=== PATIENT | female | born 1980 | race American Indian/Alaskan Native ===

== ENCOUNTER 2016-10-29 22:30 | Inpatient (IN) | payer BC ==
--- NOTE | 2016-10-29 22:54 | ED PDOC ---
HPI: Back Time Seen by Provider: 10/29/16 22:38 Chief Complaint (Nursing): Back Pain Chief Complaint (Provider): back pain, fever, buttock pain History Per: Patient History/Exam Limitations: no limitations Onset/Duration Of Symptoms: Days (5), Intermittent Episodes Current Symptoms Are (Timing): Still Present Quality Of Discomfort: Sharp Severity: Severe Previous Symptoms: None Exacerbating Factor(s): Turning, Movement, Sitting Additional Complaint(s): 36yo female c/o low back pain and buttock pain stared about 5-6 days ago and has been progressing now w pain sitting, associated with fever and generalized weakness. Denies urinary symptoms, vomiting, diarrhea or syncope. Past Medical History Reviewed: Historical Data, Nursing Documentation, Vital Signs Vital Signs: Last Vital Signs Temp 98.6 F 10/29/16 22:32 Pulse 87 10/29/16 22:32 Resp 16 10/29/16 22:32 BP 130/84 10/29/16 22:32 Pulse Ox 100 10/29/16 22:32 - Medical History PMH: No Chronic Diseases - Family History Family History: States: Unknown Family Hx - Living Arrangements Living Arrangements: With Family - Social History Current smoker - smoking cessation education provided: No - Allergies Allergies/Adverse Reactions: Allergies Allergy/AdvReac Type Severity Reaction Status Date / Time No Known Allergies Allergy Verified 10/29/16 22:32 Review of Systems ROS Statement: Except As Marked, All Systems Reviewed And Found Negative Constitutional: Positive for: Fever, Chills Cardiovascular: Negative for: Chest Pain, Palpitations Gastrointestinal: Negative for: Nausea, Vomiting, Diarrhea Musculoskeletal: Positive for: Neck Pain, Back Pain, Other (buttock pain). Negative for: Arm Pain Skin: Positive for: Rash (buttocks). Negative for: Jaundice, Bruising Neurological: Negative for: Weakness, Numbness, Headache Psych: Negative for: Anxiety Physical Exam - Reviewed Nursing Documentation Reviewed: Yes Vital Signs Reviewed: Yes - Physical Exam Appears: Positive for: Well, Non-toxic, No Acute Distress Head Exam: Positive for: ATRAUMATIC, NORMAL INSPECTION, NORMOCEPHALIC Skin: Positive for: Normal Color, Warm, DRY Eye Exam: Positive for: EOMI, Normal appearance, PERRL ENT: Positive for: Normal ENT Inspection Neck: Positive for: Normal, Painless ROM Cardiovascular/Chest: Positive for: Regular Rate, Rhythm Respiratory: Positive for: CNT, Normal Breath Sounds Gastrointestinal/Abdominal: Positive for: Normal Exam, Bowel Sounds, Soft Back: Positive for: Decreased ROM, Other (significant buttock tenderness, induration, erythema, warmth with palpable tender nodules b/l) Extremity: Negative for: Deformity Neurologic/Psych: Positive for: Alert, Oriented Front/Back of Body: 1 - tenderness - ECG O2 Sat by Pulse Oximetry: 100 Medical Decision Making Medical Decision Making: Admit for cellulitis, likely require specialty consult given clinical findings. Admit hospitalist. Unasyn initiated. Disposition - Clinical Impression Clinical Impression: Cellulitis and abscess of buttock - Patient ED Disposition Is Patient to be Admitted: Yes Counseled Patient/Family Regarding: Studies Performed, Diagnosis - Disposition Disposition Time: 22:55 Condition: STABLE
[2016-10-29] MEDS ORDERED: Ampicillin/Sulbactam 3 GM in Sodium Chloride 0.9% 100 ML IVPB STA (22:58)
--- NOTE | 2016-10-29 23:29 | CP.PCM.HP ---
History of Present Illness - History of Present Illness History of Present Illness: PCP: Ashley Murphy MD ( Not on staff) Chief complaint: Lower back and left buttock pain/fever HPI: 36 years old female with no significant medical hx comes with 5-6 days of sharp left buttock pain radiating to the lower back, increases with sitting and turning of the trunk and associated with fever and generalized weakness the last 2 days. Her home medications provides minimal relief. No nausea, vomits, diarrhea, dysuria nor hx of trauma. PMH: No chronic nor hereditary diseases PSH: Tonsillectomy; wisdom tooth extraction; Bilateral breast implant; Cyst removed from overies; Tummy Tuck 2016 SH: Denies Smoking of Cigarettes; Alcohol socially; No illegal drug use; Live with family; works as a agency trainer FH: Refers Unknown family history Allergies: NKDA Seasonal Allergies Medication: Vesicare Present on Admission - Present on Admission Any Indicators Present on Admission: No History of DVT/PE: No History of Uncontrolled Diabetes: No Urinary Catheter: No Decubitus Ulcer Present: No Review of Systems - Constitutional Constitutional: Fatigue, Fever, Weakness. absent: Anorexia, Chills, Headache - EENT Eyes: Requires Corrective Lenses. absent: Diplopia, Floaters, Photophobia Ears: absent: Decreased Hearing, Ear Discharge, Ear Pain, Tinnitus Nose/Mouth/Throat: absent: Epistaxis, Nasal Congestion, Nasal Discharge, Sinus Pain, Sinus Pressure - Cardiovascular Cardiovascular: absent: Chest Pain, Dyspnea, Leg Edema - Respiratory Respiratory: absent: Cough, Wheezing, Stridor, Chest Congestion - Gastrointestinal Gastrointestinal: Abdominal Pain, Constipation. absent: Diarrhea, Nausea - Genitourinary Genitourinary: absent: Dysuria, Flank Pain, Hematuria, Urinary Frequency - Musculoskeletal Additional comments: Pain to the lower back and pain to the left buttock - Integumentary Integumentary: absent: Pruritus, Rash, Skin Ulcer, Sores, Swelling - Neurological Neurological: Weakness. absent: Abnormal Gait, Abnormal Hearing, Confusion, Focal Weakness, Tremor - Psychiatric Psychiatric: Anxiety. absent: Depression, Panic Attacks - Endocrine Endocrine: Palpitations. absent: Polydipsia, Polyphagia, Polyuria - Hematologic/Lymphatic Hematologic: absent: Easy Bleeding, Easy Bruising Past Patient History - Past Medical History & Family History Past Medical History?: No - Past Social History Smoking Status: Never Smoked Chewing Tobacco Use: No Cigar Use: No Alcohol: Social Drugs: Denies Home Situation {Lives}: With Family - CARDIAC Hx Cardiac Disorders: No - PULMONARY Hx Respiratory Disorders: No - NEUROLOGICAL Hx Neurological Disorder: No - HEENT Hx HEENT Problems: No - RENAL Hx Chronic Kidney Disease: No - ENDOCRINE/METABOLIC Hx Endocrine Disorders: No - HEMATOLOGICAL/ONCOLOGICAL Hx Blood Disorders: No - INTEGUMENTARY Hx Basil Cell: No - MUSCULOSKELETAL/RHEUMATOLOGICAL Hx Musculoskeletal Disorders: Yes Hx Back Pain: Yes - SURGICAL HISTORY Hx Surgeries: Yes Hx Tonsillectomy: Yes Other/Comment: Bilateral breast implant; Tummy Tuck; Cyst removal from overies - ANESTHESIA Hx Anesthesia: Yes Hx Anesthesia Reactions: No Meds Allergies/Adverse Reactions: Allergies Allergy/AdvReac Type Severity Reaction Status Date / Time No Known Allergies Allergy Verified 10/29/16 22:32 Physical Exam - Constitutional Appears: No Acute Distress - Head Exam Head Exam: ATRAUMATIC, NORMAL INSPECTION, NORMOCEPHALIC - Eye Exam Eye Exam: EOMI, Normal appearance Pupil Exam: NORMAL ACCOMODATION, PERRL - ENT Exam ENT Exam: Mucous Membranes Moist, Normal Exam, Normal External Ear Exam, Normal Oropharynx - Neck Exam Neck exam: Positive for: Full Rom, Normal Inspection. Negative for: Lymphadenopathy, Tenderness - Respiratory Exam Respiratory Exam: Clear to Auscultation Bilateral. absent: Rales, Rhonchi, Wheezes - Cardiovascular Exam Cardiovascular Exam: REGULAR RHYTHM, RRR, +S1, +S2. absent: Gallop, JVD - GI/Abdominal Exam GI & Abdominal Exam: Normal Bowel Sounds, Soft. absent: Mass, Organomegaly, Tenderness - Rectal Exam Rectal Exam: Deferred - Extremities Exam Extremities exam: Negative for: calf tenderness, full ROM, normal inspection, pedal edema - Back Exam Back exam: NORMAL INSPECTION Additional comments: Pain across the lower back, most severe at the mid region on palpitation. - Neurological Exam Neurological exam: Alert, CN II-XII Intact, Oriented x3, Reflexes Normal - Psychiatric Exam Psychiatric exam: Normal Affect, Normal Mood - Skin Skin Exam: Cyanosis, Dry, Intact, Warm Additional comments: left buttock with areas of Hyperpigmentation, tender to palpation with some painful masses on palpation. Results - Vital Signs Recent Vital Signs: Last Vital Signs Temp 98.6 F 10/29/16 22:32 Pulse 87 10/29/16 22:32 Resp 16 10/29/16 22:32 BP 130/84 10/29/16 22:32 Pulse Ox 100 10/29/16 23:22 - Labs Result Diagrams: 10/29/16 23:20 10/29/16 23:20 Assessment & Plan - Assessment and Plan (Free Text) Plan: 36 years old female with no significant medical hx comes with 5-6 days of sharp left buttock pain radiating to the lower back, increases with sitting and turning of the trunk and associated with fever and generalized weakness the last 2 days. #. Cellulitis of the left buttock - Unasyn 3g IVPD Q6H - Follow Blood culture #. Lower back pain - pain management with Toradol #. DVT prophylaxis with lovenox #. Code Status: Full - Date & Time Date: 10/29/16 Time: 23:29
[2016-10-29 23:42] LABS: RBC URINE 2 /hpf (0-3); URINE BILIRUBIN NEGATIVE (NEGATIVE); URINE BLOOD NEGATIVE (NEGATIVE); URINE COLOR YELLOW (YELLOW); URINE GLUCOSE (UA) NEG (Normal); URINE KETONE NEGATIVE (NEGATIVE); URINE LEUKOCYTE ESTERASE NEG Leu/uL (Negative); URINE PROTEIN NEGATIVE (NEGATIVE); WBC URINE 2 /hpf (0-5)
[2016-10-29 23:59] LABS: BASO % 0.6 % (0.0-2.0); EOS # 0.1 K/uL (0.0-0.7); EOS % 2.2 % (0.0-4.0); HEMATOCRIT 38.6 % (34.0-47.0); LYMPH # 1.4 K/uL (1.0-4.3); LYMPH % 21.9 % (20.0-40.0); MEAN CELL VOLUME 94.5 fl (81.0-99.0); MEAN CORPUSCULAR HGB CONC 32.8 g/dL (33.0-37.0); MEAN PLATELET VOLUME 8.6 fl (7.2-11.7); MONO # 0.8 K/uL (0.0-0.8); MONO % 12.3 % (0.0-10.0); NEUT # 4.1 K/uL (1.8-7.0); NRBC % 0.1 % (0.0-0.0); RED CELL DISTRIBUTION WIDTH 13.2 % (11.5-14.5); WHITE BLOOD COUNT 6.5 K/uL (4.8-10.8)
[2016-10-30 00:01] LABS: ALB/GLOB RATIO 1.5 (1.0-2.1); ALKALINE PHOSPHATASE 48 U/L (38-126); ALT/SGPT 21 U/L (9-52); AST/SGOT 45 U/L (14-36); BILIRUBIN,TOTAL 0.9 mg/dl (0.2-1.3); BLOOD UREA NITROGEN 16 mg/dl (7-17); CALCIUM 9.6 mg/dL (8.4-10.2); CARBON DIOXIDE 25 mmol/L (22-30); CHLORIDE 103 mmol/L (98-107); GFR AFRICAN-AMERICAN > 60; GLUCOSE,RANDOM 83 mg/dL (65-105); SODIUM 138 mmol/l (132-148); TOTAL PROTEIN 6.9 G/DL (6.3-8.2)
[2016-10-30 00:04] LABS: POTASSIUM 4.4 MMOL/L (3.6-5.0)
[2016-10-30 00:14] LABS: PARTIAL THROMBOPLASTIN TIME 27.1 Seconds (25.6-37.1)
[2016-10-30] MEDS: Ampicillin/Sulbactam 3 GM in Sodium Chloride 0.9% 100 ML IVPB SCH ×4 (05:50→23:40)
--- NOTE | 2016-10-30 07:55 | CP.PCM.PN ---
Subjective - Date & Time of Evaluation Date of Evaluation: 10/30/16 Time of Evaluation: 07:55 Objective - Vital Signs/Intake and Output Vital Signs (last 24 hours): Temp Pulse Resp BP Pulse Ox 97.8 F 60 18 119/71 100 10/30/16 06:05 10/30/16 00:24 10/30/16 00:24 10/30/16 00:24 10/30/16 00:24 - Medications Medications: Current Medications Enoxaparin Sodium (Lovenox) 40 mg SC DAILY [facility] PRN Reason: Protocol Ampicillin Sodium/Sulbactam (Sodium 3 gm/ Sodium Chloride) 100 mls @ 100 mls/ hr IVPB Q6H [facility] Last Admin: 10/30/16 05:50 Dose: 100 mls/hr Ketorolac Tromethamine (Toradol) 15 mg IVP Q6 PRN PRN Reason: Pain, moderate (4-7) Ketorolac Tromethamine (Toradol) 30 mg IVP Q6 PRN PRN Reason: Pain, severe (8-10) Last Admin: 10/30/16 05:56 Dose: 30 mg - Labs Labs: 10/29/16 23:20 10/29/16 23:20 PT 13.5 Seconds (9.8-13.1) H 10/29/16 23:20 INR 1.3 (0.9-1.2) H 10/29/16 23:20 APTT 27.1 Seconds (25.6-37.1) 10/29/16 23:20 Assessment and Plan - Assessment and Plan (Free Text) Plan: 36 years old female with no significant medical hx comes with 5-6 days of sharp left buttock pain radiating to the lower back, increases with sitting and turning of the trunk and associated with fever and generalized weakness the last 2 days. #. Cellulitis of the left buttock - Unasyn 3g IVPD Q6H - Follow Blood culture #. Lower back pain - pain management with Toradol #. DVT prophylaxis with lovenox #. Code Status: Full
--- NOTE | 2016-10-30 09:08 | CP.PCM.PN ---
Subjective - Date & Time of Evaluation Date of Evaluation: 10/30/16 Time of Evaluation: 09:05 - Subjective Subjective: pt seen examined bedside. + exquisite tenderness, masses bilateral buttock, lumbar area with fluctuance, boggy changes pain managed well otherwise no other complaints no cp dyspnea vss nad Objective - Vital Signs/Intake and Output Vital Signs (last 24 hours): Temp Pulse Resp BP Pulse Ox 97.6 F 59 L 20 105/68 96 10/30/16 08:06 10/30/16 08:06 10/30/16 08:06 10/30/16 08:06 10/30/16 08:06 GEN: WDWN, alert, cooperative HEENT: NCAT, PERRL, EOMI Neck: supple, no lymphadenopathy CARDIO: +S1S2, RRR, NO M/R/G LUNG: CTAB, NO W/R/R ABD: soft, NT, ND, no masses, no HSM EXT: no edema, pedal pulses Neuro: AAOx3, Strength equal, bilateral UE/LE Skin: bilteral buttock / L spine hyperpigmentation, tenderness, masses, discoloration, exquisite tenderness, and warmth likely cellulitic / soft tissue necrosis. This is also extending to the lumbar area with fluctuance, boggy changes. Psych: normal mood, normal affect - Medications Medications: Current Medications Enoxaparin Sodium (Lovenox) 40 mg SC DAILY [facility] PRN Reason: Protocol Ampicillin Sodium/Sulbactam (Sodium 3 gm/ Sodium Chloride) 100 mls @ 100 mls/ hr IVPB Q6H [facility] Last Admin: 10/30/16 05:50 Dose: 100 mls/hr Ketorolac Tromethamine (Toradol) 15 mg IVP Q6 PRN PRN Reason: Pain, moderate (4-7) Ketorolac Tromethamine (Toradol) 30 mg IVP Q6 PRN PRN Reason: Pain, severe (8-10) Last Admin: 10/30/16 05:56 Dose: 30 mg - Labs Labs: 10/29/16 23:20 10/29/16 23:20 PT 13.5 Seconds (9.8-13.1) H 10/29/16 23:20 INR 1.3 (0.9-1.2) H 10/29/16 23:20 APTT 27.1 Seconds (25.6-37.1) 10/29/16 23:20 Assessment and Plan - Assessment and Plan (Free Text) Plan: 36 years old female with no significant medical hx comes with 5-6 days of sharp left buttock pain radiating to the lower back, increases with sitting and turning of the trunk and associated with fever and generalized weakness the last 2 days. Soft Tissue Necrosis pt presenting with hyperpigmentation, tenderness, masses, discoloration, exquisite tenderness, and warmth likely cellulitic / soft tissue necrosis. This is also extending to the lumbar area with fluctuance, boggy, discoloration changes. - MRI of Pelvis without contrast today - MRI of Lumbar spine without contrast today for further evaluation - Unasyn 3g IVPD Q6H - Follow Blood culture Lower back pain - pain management with Toradol DVT prophylaxis with lovenox Code Status: Full
[2016-10-30] MEDS: Enoxaparin 40 mg Syringe SC SCH (10:03)
[2016-10-31] MEDS: Ampicillin/Sulbactam 3 GM in Sodium Chloride 0.9% 100 ML IVPB SCH ×3 (06:19→17:05)
[2016-10-31 06:29] LABS: HEMATOCRIT 39.5 % (34.0-47.0); MEAN CELL VOLUME 95.8 fl (81.0-99.0); MEAN CORPUSCULAR HEMOGLOBIN 31.4 pg (27.0-31.0); MEAN CORPUSCULAR HGB CONC 32.8 g/dL (33.0-37.0); RED CELL DISTRIBUTION WIDTH 13.6 % (11.5-14.5); WHITE BLOOD COUNT 5.6 K/uL (4.8-10.8)
[2016-10-31 06:34] LABS: BLOOD UREA NITROGEN 16 mg/dl (7-17); CALCIUM 8.6 mg/dL (8.4-10.2); CARBON DIOXIDE 27 mmol/L (22-30); CHLORIDE 104 mmol/L (98-107); GFR AFRICAN-AMERICAN > 60; GLUCOSE,RANDOM 78 mg/dL (65-105); POTASSIUM 3.6 MMOL/L (3.6-5.0); SODIUM 138 mmol/l (132-148)
--- NOTE | 2016-10-31 09:51 | CP.PCM.PN ---
Subjective - Date & Time of Evaluation Date of Evaluation: 10/31/16 Time of Evaluation: 08:45 - Subjective Subjective: pt seen and examined bedside. NAD, sleeping comfortably, back and b/l buttock pain is well controlled on medication. pt denies any fever, chills, n/v, chest pain, SOB or abdo pain. Objective - Vital Signs/Intake and Output Vital Signs (last 24 hours): Temp Pulse Resp BP Pulse Ox 97.8 F 70 20 108/72 99 10/31/16 08:38 10/31/16 08:38 10/31/16 08:38 10/31/16 08:38 10/31/16 08:38 - Medications Medications: Current Medications Enoxaparin Sodium (Lovenox) 40 mg SC DAILY [facility] PRN Reason: Protocol Last Admin: 10/30/16 10:03 Dose: 40 mg Ampicillin Sodium/Sulbactam (Sodium 3 gm/ Sodium Chloride) 100 mls @ 100 mls/ hr IVPB Q6H [facility] Last Admin: 10/31/16 06:19 Dose: 100 mls/hr Ketorolac Tromethamine (Toradol) 15 mg IVP Q6 PRN PRN Reason: Pain, moderate (4-7) Last Admin: 10/30/16 23:48 Dose: 15 mg Ketorolac Tromethamine (Toradol) 30 mg IVP Q6 PRN PRN Reason: Pain, severe (8-10) Last Admin: 10/30/16 12:04 Dose: 30 mg - Labs Labs: 10/31/16 06:00 10/31/16 06:00 PT 13.5 Seconds (9.8-13.1) H 10/29/16 23:20 INR 1.3 (0.9-1.2) H 10/29/16 23:20 APTT 27.1 Seconds (25.6-37.1) 10/29/16 23:20 - Constitutional Appears: Non-toxic, No Acute Distress - Head Exam Head Exam: ATRAUMATIC, NORMAL INSPECTION, NORMOCEPHALIC - ENT Exam ENT Exam: Mucous Membranes Moist, Normal Exam - Neck Exam Neck Exam: Full ROM, Normal Inspection - Respiratory Exam Respiratory Exam: Clear to Ausculation Bilateral, NORMAL BREATHING PATTERN - Cardiovascular Exam Cardiovascular Exam: REGULAR RHYTHM, +S1, +S2. absent: JVD, Murmur - GI/Abdominal Exam GI & Abdominal Exam: Soft, Normal Bowel Sounds - Extremities Exam Extremities Exam: Full ROM, Normal Capillary Refill, Normal Inspection. absent : Calf Tenderness, Pedal Edema, Tenderness - Back Exam Back Exam: absent: CVA tenderness (L), CVA tenderness (R) Additional comments: bilteral buttock and lower back tenderness, hyperpigmentation, masses, mildly warmth. This is also extending to the lumbar area with fluctuance, boggy changes - Neurological Exam Neurological Exam: Alert, Awake, Oriented x3 - Psychiatric Exam Psychiatric exam: Normal Affect, Normal Mood - Skin Skin Exam: Dry, Intact, Normal Color, Warm Assessment and Plan - Assessment and Plan (Free Text) Assessment: A/P: 36 y/o F with sharp lower back and b/l buttock pain, possible soft tissue Necrosis/Cellulitis. B/L Buttock Cellulitis/ possible soft tissue necrosis - MRI of pelvis and L-spine w/o contrast was done showed Silicon implants/ related fibrosis and possible migration of implants/cellulitis, no disk herniation - F/u Plastic recommendations - Unasyn 3g IVPD Q6H - continue pain management, Toradol - Blood Culture: no growth after 24hrs Coagulopathy - PT/INR: 13.5/1.3 - will repeat labs again DVT ppx - Lovenox - Encourage ambulation
[2016-10-31] MEDS: Enoxaparin 40 mg Syringe SC SCH (11:30)
--- NOTE | 2016-10-31 13:49 | MRI ---
PROCEDURE: MR LUMBAR SPINE WITHOUT CONTRAST HISTORY: pt presenting with hyperpigmentation, tenderness, COMPARISON: None available. TECHNIQUE: Multiecho multiplanar sequences were performed through the lumbar spine without the use of intravenous contrast. FINDINGS: Normal lumbar curvature is appreciated there is no fracture or spondylolisthesis identified. Overall marrow signal appears diffusely within or limits with the vertebral body heights normal throughout. The intervertebral disc heights are remarkable for mildly decreased L4-5 disc height. The conus medullaris appears normal in intrinsic signal terminating at the L1 vertebrae level. Mild diffuse disc desiccation is appreciated throughout. The visualized prevertebral paraspinal soft tissues are remarkable only for a small sub cm cyst posterior to the left L3 lamina of uncertain origin, potentially from the left facet joint although no effusion is seen in this joint. Incidental note is also made of multiple cystic foci in variable state variable signal intensity at the upper bilateral buttocks in this patient suspicious for prior come cosmetic procedure, better seen in prior and pelvis CT exam 07/01/2009. Clinically correlate. T12-L1: No disc herniation, spinal canal stenosis or neural foraminal narrowing. L1-2: No disc herniation, spinal canal stenosis or neural foraminal narrowing. L2-3: No disc herniation, spinal canal stenosis or neural foraminal narrowing. L3-4: No disc herniation, spinal canal stenosis or neural foraminal narrowing. Minimal disc bulging identified without stenosis. L4-5: No disc herniation, spinal canal stenosis or neural foraminal narrowing. Minimal disc bulging identified without stenosis. L5-S1: No disc herniation, spinal canal stenosis or neural foraminal narrowing. Minimal disc bulging identified without stenosis. OTHER FINDINGS: None. IMPRESSION: Minimal disc bulge is appreciated L3-4 through L5-S1 intervertebral discs inclusively, without significant stenosis identified. No disc herniation, central canal or neural foraminal stenosis is encountered. The tiny sub cm cysts is seen posterior to the left L3 lamina of uncertain origin and significance. Further, cosmetic changes are suspected at the bilateral upper buttocks as partially captured in this examination better seen in prior abdomen pelvis CT 07/01/2009. Clinically correlate further.
--- NOTE | 2016-10-31 14:06 | MRI ---
PROCEDURE: MRI pelvis without contrast HISTORY: SOFT TISSUE NECROSIS COMPARISON: None available. TECHNIQUE: Multiplanar, multi sequence MR images of the pelvis were obtained. No intravenous gadolinium contrast was administered. FINDINGS: UTERUS: Myometrium: Unremarkable. Endometrium: Unremarkable. Junctional zone: No abnormal thickening to indicate adenomyosis. No definite myometrial cysts. Cervix: A few nabothian cysts are identified. Vagina: Unremarkable. Fibroids: None. OVARIES/ ADNEXA: Right ovary: 1.7 cm right ovarian cyst identified which may represent a dominant follicle with follicles otherwise identified here. Left ovary: A few small follicles are identified with the left ovary otherwise unremarkable. Fallopian tubes: Not visualized. No evidence of hydrosalpinx. BOWEL: Partially visualized rectosigmoid colon is grossly unremarkable. LYMPH NODES: No lymphadenopathy. BLADDER: Unremarkable. FREE FLUID: None. PELVIC BONES: No fracture or bony erosive changes are identified throughout the pelvic ring with the pubic symphysis remaining intact. No suspicious signal changes to suggest osteomyelitis at this time. Extensive inhomogeneous signal is seen scattered throughout the bilateral buttocks comparable to that seen in prior abdomen and pelvis CT examination without contrast dated 07/01/2009. At that time, the majority these findings suggests probable fibrosis or even local edema intermixed with innumerable fat containing cysts suggestive of prior cosmetic injections/procedure. There are numerous fluid containing foci scattered throughout the buttocks at this time not all of which are consistent with fat containing structures. The largest identified measuring only 1.7 x 1.6 cm at the left buttocks. Underlying bilateral buttock cellulitis is difficult to completely exclude. A definitive abscess is not favored. No definitive mass is seen overlying the plane of the bilateral sacral plexus regions. OTHER FINDINGS: None. IMPRESSION: 1. Inhomogeneous signal changes in the bilateral buttocks compatible with likely prior cosmetic injections/procedure an probable related fibrosis is appreciated with underlying cellulitis not excluded bilaterally. Scattered small cystic foci are appreciated less numerous than the prior apparently fat containing collections seen in the abdomen and pelvis CT dated 07/09/2009. No definite abscess is not favored but is difficult to completely exclude. No bony changes to suggest osteomyelitis at this time. 2. 1.7 cm right ovarian cyst likely reflects a dominant follicle. .
--- NOTE | 2016-10-31 16:40 | RAD ---
PROCEDURE: CHEST RADIOGRAPH, 1 VIEW HISTORY: pre-op COMPARISON: None available. FINDINGS: LUNGS: Clear. PLEURA: No pneumothorax or pleural fluid seen. CARDIOVASCULAR: Normal. OSSEOUS STRUCTURES: No significant abnormalities. VISUALIZED UPPER ABDOMEN: Normal. OTHER FINDINGS: None. IMPRESSION: No active cardiopulmonary disease identified.
[2016-10-31 20:45] LABS: IMMUNOGLOBULIN G 992.5 mg/dL (700.0-1600.0)
[2016-10-31 20:46] LABS: IMMUNOGLOBULIN M 73.4 mg/dL (40.0-230.0)
[2016-10-31 20:47] LABS: IMMUNOGLOBULIN A 204.2 mg/dL (70.0-400.0)
[2016-11-01] MEDS: Lactated Ringer's 1,000 ML IV SCH ×3 (00:55→13:11)
[2016-11-01] MEDS: Ampicillin/Sulbactam 3 GM in Sodium Chloride 0.9% 100 ML IVPB SCH ×5 (00:56→23:16)
[2016-11-01 05:42] LABS: BASO % 0.7 % (0.0-2.0); EOS # 0.1 K/uL (0.0-0.7); EOS % 2.3 % (0.0-4.0); HEMATOCRIT 38.2 % (34.0-47.0); LYMPH # 1.7 K/uL (1.0-4.3); LYMPH % 27.3 % (20.0-40.0); MEAN CELL VOLUME 95.5 fl (81.0-99.0); MEAN CORPUSCULAR HEMOGLOBIN 31.2 pg (27.0-31.0); MEAN CORPUSCULAR HGB CONC 32.6 g/dL (33.0-37.0); MEAN PLATELET VOLUME 8.9 fl (7.2-11.7); MONO # 0.9 K/uL (0.0-0.8); MONO % 13.6 % (0.0-10.0); NEUT # 3.5 K/uL (1.8-7.0); NEUT % 56.1 % (50.0-75.0); RED CELL DISTRIBUTION WIDTH 13.3 % (11.5-14.5); WHITE BLOOD COUNT 6.2 K/uL (4.8-10.8)
[2016-11-01 05:52] LABS: BLOOD UREA NITROGEN 15 mg/dl (7-17); CALCIUM 8.6 mg/dL (8.4-10.2); CARBON DIOXIDE 25 mmol/L (22-30); CHLORIDE 105 mmol/L (98-107); GFR AFRICAN-AMERICAN > 60; GLUCOSE,RANDOM 81 mg/dL (65-105); POTASSIUM 3.8 MMOL/L (3.6-5.0); SODIUM 136 mmol/l (132-148)
[2016-11-01 09:12] LABS: TOTAL PROTEIN, SERUM 6.5 g/dL (6.1-8.1)
--- NOTE | 2016-11-01 09:53 | CP.PCM.PN ---
Subjective - Date & Time of Evaluation Date of Evaluation: 11/01/16 Time of Evaluation: 08:45 - Subjective Subjective: 36 y/o F, s/p b/l buttock injections and possible soft tissue necrosis/ Cellulitis. Patient seen and examined this morning, sleeping comfortably. pt admits mild to moderate b/l buttock pain and controlled with pain medications. pt denies any fever, chills, n/v, chest pain or SOB. Objective - Vital Signs/Intake and Output Vital Signs (last 24 hours): Temp Pulse Resp BP Pulse Ox 97.8 F 67 20 113/76 99 11/01/16 07:51 11/01/16 07:51 11/01/16 07:51 11/01/16 07:51 11/01/16 07:51 - Medications Medications: Current Medications Enoxaparin Sodium (Lovenox) 40 mg SC DAILY [facility] PRN Reason: Protocol Last Admin: 10/31/16 11:30 Dose: 40 mg Ampicillin Sodium/Sulbactam (Sodium 3 gm/ Sodium Chloride) 100 mls @ 100 mls/ hr IVPB Q6H [facility] Last Admin: 11/01/16 05:58 Dose: 100 mls/hr Lactated Ringer's (Lactated Ringer's) 1,000 mls @ 100 mls/hr IV .Q10H [facility] Last Admin: 11/01/16 00:55 Dose: 100 mls/hr Morphine Sulfate (Morphine) 2 mg IVP Q4 PRN PRN Reason: Pain, moderate (4-7) Morphine Sulfate (Morphine) 4 mg IVP Q4 PRN PRN Reason: Pain, severe (8-10) - Labs Labs: 11/01/16 05:33 11/01/16 05:33 PT 13.5 Seconds (9.8-13.1) H 10/29/16 23:20 INR 1.3 (0.9-1.2) H 10/29/16 23:20 APTT 27.1 Seconds (25.6-37.1) 10/29/16 23:20 - Constitutional Appears: No Acute Distress - Head Exam Head Exam: ATRAUMATIC, NORMAL INSPECTION, NORMOCEPHALIC - Eye Exam Eye Exam: EOMI, Normal appearance, PERRL Pupil Exam: NORMAL ACCOMODATION, PERRL - ENT Exam ENT Exam: Mucous Membranes Moist - Neck Exam Neck Exam: Full ROM, Normal Inspection - Respiratory Exam Respiratory Exam: Clear to Ausculation Bilateral. absent: Accessory Muscle Use , Respiratory Distress - Cardiovascular Exam Cardiovascular Exam: REGULAR RHYTHM, +S1, +S2 - GI/Abdominal Exam GI & Abdominal Exam: Soft, Normal Bowel Sounds. absent: Tenderness - Extremities Exam Extremities Exam: Full ROM, Normal Capillary Refill, Normal Inspection. absent : Calf Tenderness - Back Exam Back Exam: absent: CVA tenderness (L), CVA tenderness (R) - Neurological Exam Neurological Exam: Alert, Awake, Oriented x3 Neuro motor strength exam: Left Upper Extremity: 5, Right Upper Extremity: 5, Left Lower Extremity: 5, Right Lower Extremity: 5 - Psychiatric Exam Psychiatric exam: Flat Affect - Skin Skin Exam: Dry, Intact, Normal Color, Warm Additional comments: bilteral buttock and lower back tenderness, hyperpigmentation, masses, mildly warmth. Assessment and Plan - Assessment and Plan (Free Text) Assessment: A/P: 36 y/o F with sharp lower back and b/l buttock pain, possible soft tissue Necrosis/Cellulitis. B/L Buttock Cellulitis/ possible soft tissue necrosis - MRI of pelvis and L-spine w/o contrast was done shows cystic foci and possible fibrosis & cellulitis, no disk herniation - F/u Plastic surgery recommendations- possible intervention today - Unasyn 3g IVPD Q6H - continue pain management - Blood Culture: no growth - Clear CXR 10/31 Coagulopathy - PT/INR: 13.5/1.3 - will repeat labs again DVT ppx - Lovenox on hold - Encourage ambulation
--- NOTE | 2016-11-01 13:36 | PQF GENQUE ---
This form is a permanent part of the medical record 11/01/16 Dr. Pagan, Patient with a history of bilateral buttock implants is now admitted for possible soft tissue necrosis/Cellulitis. MRI results in the EMR. Awaiting plastic surgery consult. Treated with IVAB. AFTER WORK-UP please clarify the relationship, if any, between ( THE BUTTOCK IMPLANTS ) and ( CELLULITIS) Clarification of your documentation is requested to better reflect the severity of illness and intensity of treatment of your patient. Indicators present [] Specify: [] [] Specify: [] [] Specify: [] [] Specify: [] Location in the medical record that reflects the above clinical findings: [] Treatment Provided: [] PHYSICIAN'S RESPONSE please clarify the relationship, if any, between ( THE BUTTOCK IMPLANTS ) and ( CELLULITIS) Are the conditions: [] Due to or associated with each other [] Unrelated to each other [] Clinically unable to determine [] Unknown Based on your medical judgment of the clinical indicators outlined above please clarify the following: [] Practitioner response [] If unable to determine, please check the box, sign and date. Present On Admission (POA) Indicator: [] Present at the time of admission [] Not present at the time of admission [] Clinically Undetermined In responding to this query, please exercise your independent professional judgment. The fact that a question is asked does not imply that any particular answer is desired or expected. Thank you for your clarification on this documentation. If you have any questions please call:extension [phone] * Thank you, Loulou Graff RN [facility]
--- NOTE | 2016-11-01 13:48 | CP.PCM.CON ---
<Jorge L Moreau - Last Filed: 11/01/16 13:48> History of Present Illness - History of Present Illness History of Present Illness: Surgical Consult We were consulted on this 36 yo Female who presented to the ER with acute severe back and buttock pain, paresthesisas of bilateral lower extremities and burning and itching of bilateral buttocks. She was admitted for buttock cellulitis to the hospitalist service and treated with IV antibiotics. MRI of lumbar spine and pelvis showed significant soft tissue necrosis of entire bilateral buttocks soft tissue and involving bilateral gluteus kobe muscles. There was also significant migration up the lumbar spine to L2 contributing to severe incapacitating back pain from mass effect. On physical exam, there is hardening of entire bilateral buttocks and lumbar spine soft tissues. There are masses in the lumbar spine and upper poles of the buttocks. There is hyperpigmentation throughout the area and areas that are warm and erythema and several exquisitely tender areas. Her diagnosis is cellulitis and soft tissue necrosis of bilateral buttocks and back. Case d/w attending who recommends emergent debridement within the next day. Please optimize medically. Please continue Unasyn vs cellulitis. Please T&C 2 U PRBC. Past Patient History - Past Medical History & Family History Past Medical History?: No - Past Social History Smoking Status: Current Some Days Smoker - CARDIAC Hx Cardiac Disorders: No - PULMONARY Hx Respiratory Disorders: No - NEUROLOGICAL Hx Neurological Disorder: No - HEENT Hx HEENT Problems: No - RENAL Hx Chronic Kidney Disease: No - ENDOCRINE/METABOLIC Hx Endocrine Disorders: No - HEMATOLOGICAL/ONCOLOGICAL Hx Blood Disorders: No - INTEGUMENTARY Hx Basil Cell: No - MUSCULOSKELETAL/RHEUMATOLOGICAL Hx Falls: No - PSYCHIATRIC Hx Substance Use: No - SURGICAL HISTORY Hx Surgeries: Yes Hx Tonsillectomy: Yes Other/Comment: Bilateral breast implant; Tummy Tuck; Cyst removal from overies - ANESTHESIA Hx Anesthesia: Yes Hx Anesthesia Reactions: No Meds Allergies/Adverse Reactions: Allergies Allergy/AdvReac Type Severity Reaction Status Date / Time No Known Allergies Allergy Verified 10/29/16 22:32 - Medications Medications: Current Medications Enoxaparin Sodium (Lovenox) 40 mg SC DAILY [facility] PRN Reason: Protocol Last Admin: 10/31/16 11:30 Dose: 40 mg Ampicillin Sodium/Sulbactam (Sodium 3 gm/ Sodium Chloride) 100 mls @ 100 mls/ hr IVPB Q6H [facility] Last Admin: 11/01/16 13:08 Dose: 100 mls/hr Lactated Ringer's (Lactated Ringer's) 1,000 mls @ 100 mls/hr IV .Q10H [facility] Last Admin: 11/01/16 13:11 Dose: 100 mls/hr Morphine Sulfate (Morphine) 2 mg IVP Q4 PRN PRN Reason: Pain, moderate (4-7) Morphine Sulfate (Morphine) 4 mg IVP Q4 PRN PRN Reason: Pain, severe (8-10) Results - Vital Signs Recent Vital Signs: Last Vital Signs Temp 97.8 F 11/01/16 07:51 Pulse 67 11/01/16 07:51 Resp 20 11/01/16 07:51 BP 113/76 11/01/16 07:51 Pulse Ox 99 11/01/16 07:51 - Labs Result Diagrams: 11/01/16 05:33 11/01/16 05:33 Labs: Laboratory Results - last 24 hr 10/31/16 10/31/16 10/31/16 15:04 15:04 15:04 WBC RBC Hgb Hct MCV MCH MCHC RDW Plt Count MPV Neut % (Auto) Lymph % (Auto) Mckenzie % (Auto) Eos % (Auto) Baso % (Auto) Neut # Lymph # Mckenzie # Eos # Baso # ESR 10 Sodium Potassium Chloride Carbon Dioxide Anion Gap BUN Creatinine Est GFR ( Amer) Est GFR (Non-Af Amer) Random Glucose Calcium C-React Prot High Sens 0.18 L Total Protein (PEP) 6.5 IgG 992.5 IgA 204.2 IgM 73.4 Absolute Lymphs (Flow) % CD4 Cells Absolute CD4 Count T-Help/Suppress Ratio % CD8 Cells Absolute CD8 Count Blood Type Antibody Screen Crossmatch BBK History Checked 10/31/16 11/01/16 11/01/16 15:34 04:00 05:33 WBC 6.2 RBC 4.00 Hgb 12.5 Hct 38.2 MCV 95.5 MCH 31.2 H MCHC 32.6 L RDW 13.3 Plt Count 241 MPV 8.9 Neut % (Auto) 56.1 Lymph % (Auto) 27.3 Mckenzie % (Auto) 13.6 H Eos % (Auto) 2.3 Baso % (Auto) 0.7 Neut # 3.5 Lymph # 1.7 Mckenzie # 0.9 H Eos # 0.1 Baso # 0.0 ESR Sodium Potassium Chloride Carbon Dioxide Anion Gap BUN Creatinine Est GFR ( Amer) Est GFR (Non-Af Amer) Random Glucose Calcium C-React Prot High Sens Total Protein (PEP) IgG IgA IgM Absolute Lymphs (Flow) 1503 % CD4 Cells 39 Absolute CD4 Count 584 T-Help/Suppress Ratio 2.58 % CD8 Cells 15 Absolute CD8 Count 226 Blood Type B POSITIVE Antibody Screen Negative Crossmatch See Detail BBK History Checked No verified bt 11/01/16 05:33 WBC RBC Hgb Hct MCV MCH MCHC RDW Plt Count MPV Neut % (Auto) Lymph % (Auto) Mckenzie % (Auto) Eos % (Auto) Baso % (Auto) Neut # Lymph # Mckenzie # Eos # Baso # ESR Sodium 136 Potassium 3.8 Chloride 105 Carbon Dioxide 25 Anion Gap 10 BUN 15 Creatinine 0.8 Est GFR ( Amer) > 60 Est GFR (Non-Af Amer) > 60 Random Glucose 81 Calcium 8.6 C-React Prot High Sens Total Protein (PEP) IgG IgA IgM Absolute Lymphs (Flow) % CD4 Cells Absolute CD4 Count T-Help/Suppress Ratio % CD8 Cells Absolute CD8 Count Blood Type Antibody Screen Crossmatch BBK History Checked <Suni Chavez - Last Filed: 11/01/16 14:32> Meds - Medications Medications: Current Medications Enoxaparin Sodium (Lovenox) 40 mg SC DAILY [facility] PRN Reason: Protocol Last Admin: 10/31/16 11:30 Dose: 40 mg Ampicillin Sodium/Sulbactam (Sodium 3 gm/ Sodium Chloride) 100 mls @ 100 mls/ hr IVPB Q6H [facility] Last Admin: 11/01/16 13:08 Dose: 100 mls/hr Lactated Ringer's (Lactated Ringer's) 1,000 mls @ 100 mls/hr IV .Q10H [facility] Last Admin: 11/01/16 13:11 Dose: 100 mls/hr Morphine Sulfate (Morphine) 2 mg IVP Q4 PRN PRN Reason: Pain, moderate (4-7) Morphine Sulfate (Morphine) 4 mg IVP Q4 PRN PRN Reason: Pain, severe (8-10) Results - Vital Signs Recent Vital Signs: Last Vital Signs Temp 97.8 F 11/01/16 07:51 Pulse 67 11/01/16 07:51 Resp 20 11/01/16 07:51 BP 113/76 11/01/16 07:51 Pulse Ox 99 11/01/16 07:51 - Labs Result Diagrams: 11/01/16 05:33 11/01/16 05:33 Labs: Laboratory Results - last 24 hr 10/31/16 10/31/16 10/31/16 15:04 15:04 15:04 WBC RBC Hgb Hct MCV MCH MCHC RDW Plt Count MPV Neut % (Auto) Lymph % (Auto) Mckenzie % (Auto) Eos % (Auto) Baso % (Auto) Neut # Lymph # Mckenzie # Eos # Baso # ESR 10 Sodium Potassium Chloride Carbon Dioxide Anion Gap BUN Creatinine Est GFR ( Amer) Est GFR (Non-Af Amer) Random Glucose Calcium C-React Prot High Sens 0.18 L Total Protein (PEP) 6.5 IgG 992.5 IgA 204.2 IgM 73.4 Absolute Lymphs (Flow) % CD4 Cells Absolute CD4 Count T-Help/Suppress Ratio % CD8 Cells Absolute CD8 Count Blood Type Antibody Screen Crossmatch BBK History Checked 10/31/16 11/01/16 11/01/16 15:34 04:00 05:33 WBC 6.2 RBC 4.00 Hgb 12.5 Hct 38.2 MCV 95.5 MCH 31.2 H MCHC 32.6 L RDW 13.3 Plt Count 241 MPV 8.9 Neut % (Auto) 56.1 Lymph % (Auto) 27.3 Mckenzie % (Auto) 13.6 H Eos % (Auto) 2.3 Baso % (Auto) 0.7 Neut # 3.5 Lymph # 1.7 Mckenzie # 0.9 H Eos # 0.1 Baso # 0.0 ESR Sodium Potassium Chloride Carbon Dioxide Anion Gap BUN Creatinine Est GFR ( Amer) Est GFR (Non-Af Amer) Random Glucose Calcium C-React Prot High Sens Total Protein (PEP) IgG IgA IgM Absolute Lymphs (Flow) 1503 % CD4 Cells 39 Absolute CD4 Count 584 T-Help/Suppress Ratio 2.58 % CD8 Cells 15 Absolute CD8 Count 226 Blood Type B POSITIVE Antibody Screen Negative Crossmatch See Detail BBK History Checked No verified bt 11/01/16 05:33 WBC RBC Hgb Hct MCV MCH MCHC RDW Plt Count MPV Neut % (Auto) Lymph % (Auto) Mckenzie % (Auto) Eos % (Auto) Baso % (Auto) Neut # Lymph # Mckenzie # Eos # Baso # ESR Sodium 136 Potassium 3.8 Chloride 105 Carbon Dioxide 25 Anion Gap 10 BUN 15 Creatinine 0.8 Est GFR ( Amer) > 60 Est GFR (Non-Af Amer) > 60 Random Glucose 81 Calcium 8.6 C-React Prot High Sens Total Protein (PEP) IgG IgA IgM Absolute Lymphs (Flow) % CD4 Cells Absolute CD4 Count T-Help/Suppress Ratio % CD8 Cells Absolute CD8 Count Blood Type Antibody Screen Crossmatch BBK History Checked
[2016-11-02] MEDS ORDERED: Sodium Chloride 0.9% 1,000 ML IV SCH (00:01)
[2016-11-02] MEDS: Ampicillin/Sulbactam 3 GM in Sodium Chloride 0.9% 100 ML IVPB SCH ×3 (05:37→17:39)
[2016-11-02 06:14] LABS: BASO % 0.6 % (0.0-2.0); EOS # 0.1 K/uL (0.0-0.7); EOS % 2.5 % (0.0-4.0); HEMATOCRIT 36.6 % (34.0-47.0); LYMPH # 1.8 K/uL (1.0-4.3); LYMPH % 32.3 % (20.0-40.0); MEAN CELL VOLUME 95.2 fl (81.0-99.0); MEAN CORPUSCULAR HEMOGLOBIN 31.4 pg (27.0-31.0); MEAN PLATELET VOLUME 8.9 fl (7.2-11.7); MONO # 0.7 K/uL (0.0-0.8); MONO % 13.7 % (0.0-10.0); NEUT # 2.8 K/uL (1.8-7.0); NEUT % 50.9 % (50.0-75.0); NRBC % 0.1 % (0.0-0.0); RED CELL DISTRIBUTION WIDTH 13.4 % (11.5-14.5); WHITE BLOOD COUNT 5.4 K/uL (4.8-10.8)
[2016-11-02 06:22] LABS: ALB/GLOB RATIO 1.3 (1.0-2.1); ALKALINE PHOSPHATASE 42 U/L (38-126); ALT/SGPT 27 U/L (9-52); AST/SGOT 35 U/L (14-36); BILIRUBIN,TOTAL 0.3 mg/dl (0.2-1.3); BLOOD UREA NITROGEN 11 mg/dl (7-17); CALCIUM 8.7 mg/dL (8.4-10.2); CARBON DIOXIDE 27 mmol/L (22-30); CHLORIDE 104 mmol/L (98-107); GFR AFRICAN-AMERICAN > 60; GLUCOSE,RANDOM 78 mg/dL (65-105); POTASSIUM 3.7 MMOL/L (3.6-5.0); SODIUM 138 mmol/l (132-148); TOTAL PROTEIN 5.5 G/DL (6.3-8.2)
[2016-11-02 06:29] LABS: PARTIAL THROMBOPLASTIN TIME 29.5 Seconds (25.6-37.1)
--- NOTE | 2016-11-02 09:50 | CP.PCM.PN ---
<Zane Simons - Last Filed: 11/02/16 09:44> Subjective - Date & Time of Evaluation Date of Evaluation: 11/02/16 Time of Evaluation: 07:25 - Subjective Subjective: 36 y/o female patient- waiting for plastic surgery today for debridement. Patient seen and examined this morning, awake and ambulating w/o difficulty. pt admits mild to moderate b/l buttock pain which is controlled with pain medications. pt denies any fever, chills, n/v, chest pain or SOB. Objective - Vital Signs/Intake and Output Vital Signs (last 24 hours): Temp Pulse Resp BP Pulse Ox 97.6 F 76 20 109/67 99 11/02/16 08:12 11/02/16 08:12 11/02/16 08:12 11/02/16 08:12 11/02/16 08:12 - Medications Medications: Current Medications Enoxaparin Sodium (Lovenox) 40 mg SC DAILY [facility] PRN Reason: Protocol Last Admin: 10/31/16 11:30 Dose: 40 mg Ampicillin Sodium/Sulbactam (Sodium 3 gm/ Sodium Chloride) 100 mls @ 100 mls/ hr IVPB Q6H [facility] Last Admin: 11/02/16 05:37 Dose: 100 mls/hr Lactated Ringer's (Lactated Ringer's) 1,000 mls @ 100 mls/hr IV .Q10H [facility] Last Admin: 11/01/16 13:11 Dose: 100 mls/hr Sodium Chloride (Sodium Chloride 0.9%) 1,000 mls @ 100 mls/hr IV .Q10H [facility] Stop: 11/02/16 17:05 Last Admin: 11/02/16 02:05 Dose: 100 mls/hr Morphine Sulfate (Morphine) 2 mg IVP Q4 PRN PRN Reason: Pain, moderate (4-7) Last Admin: 11/01/16 23:20 Dose: 2 mg Morphine Sulfate (Morphine) 4 mg IVP Q4 PRN PRN Reason: Pain, severe (8-10) - Labs Labs: 11/02/16 05:00 11/02/16 05:00 PT 13.6 Seconds (9.8-13.1) H 11/02/16 05:00 INR 1.3 (0.9-1.2) H 11/02/16 05:00 APTT 29.5 Seconds (25.6-37.1) 11/02/16 05:00 - Constitutional Appears: No Acute Distress - Head Exam Head Exam: ATRAUMATIC, NORMAL INSPECTION, NORMOCEPHALIC - Eye Exam Eye Exam: EOMI, Normal appearance, PERRL Pupil Exam: NORMAL ACCOMODATION, PERRL - ENT Exam ENT Exam: Mucous Membranes Moist, Normal Exam - Neck Exam Neck Exam: Normal Inspection - Respiratory Exam Respiratory Exam: Clear to Ausculation Bilateral, NORMAL BREATHING PATTERN - Cardiovascular Exam Cardiovascular Exam: REGULAR RHYTHM, +S1, +S2 - GI/Abdominal Exam GI & Abdominal Exam: Soft, Normal Bowel Sounds - Extremities Exam Extremities Exam: Normal Capillary Refill, Normal Inspection - Back Exam Back Exam: absent: CVA tenderness (L), CVA tenderness (R) - Neurological Exam Neurological Exam: Alert, Awake, Oriented x3 - Psychiatric Exam Psychiatric exam: Normal Mood - Skin Skin Exam: Normal Color - Additional Findings Additional findings: bilteral buttock and lower back tenderness, hyperpigmentation, masses, mildly warmth. Assessment and Plan - Assessment and Plan (Free Text) Assessment: A/P: 36 y/o F with sharp lower back and b/l buttock pain, possible soft tissue Necrosis/Cellulitis. B/L Buttock Cellulitis/ possible soft tissue necrosis - Case discussed with Plastic surgery and recommendations appreciated - intervention/surgical debridement today, pt is cleared medically - NPO, IVF - Continue IV antibiotics and pain management - Unasyn 3g IVPD Q6H - MRI of pelvis and L-spine w/o contrast was done shows cystic foci and possible fibrosis & cellulitis, no disk herniation - Blood Culture: no growth - Clear CXR 10/31 Coagulopathy - PT/INR: 13.6/1.3 - will repeat and monitor DVT ppx - Lovenox on hold - Encourage ambulation <Ute Montano - Last Filed: 11/02/16 11:49> Objective - Vital Signs/Intake and Output Vital Signs (last 24 hours): Temp Pulse Resp BP Pulse Ox 97.6 F 76 20 109/67 99 11/02/16 08:12 11/02/16 08:12 11/02/16 08:12 11/02/16 08:12 11/02/16 08:12 - Medications Medications: Current Medications Enoxaparin Sodium (Lovenox) 40 mg SC DAILY [facility] PRN Reason: Protocol Last Admin: 10/31/16 11:30 Dose: 40 mg Ampicillin Sodium/Sulbactam (Sodium 3 gm/ Sodium Chloride) 100 mls @ 100 mls/ hr IVPB Q6H [facility] Last Admin: 11/02/16 05:37 Dose: 100 mls/hr Lactated Ringer's (Lactated Ringer's) 1,000 mls @ 100 mls/hr IV .Q10H [facility] Last Admin: 11/01/16 13:11 Dose: 100 mls/hr Morphine Sulfate (Morphine) 2 mg IVP Q4 PRN PRN Reason: Pain, moderate (4-7) Last Admin: 11/01/16 23:20 Dose: 2 mg Morphine Sulfate (Morphine) 4 mg IVP Q4 PRN PRN Reason: Pain, severe (8-10) - Labs Labs: 11/02/16 05:00 11/02/16 05:00 PT 13.6 Seconds (9.8-13.1) H 11/02/16 05:00 INR 1.3 (0.9-1.2) H 11/02/16 05:00 APTT 29.5 Seconds (25.6-37.1) 11/02/16 05:00 Attending/Attestation - Attestation I have personally seen and examined this patient.: Yes I have fully participated in the care of the patient.: Yes I have reviewed all pertinent clinical information, including history, physical exam and plan: Yes
[2016-11-03] MEDS: Ampicillin/Sulbactam 3 GM in Sodium Chloride 0.9% 100 ML IVPB SCH ×5 (00:47→19:06)
[2016-11-03] MEDS: Lactated Ringer's 1,000 ML IV SCH ×3 (00:50→12:34)
[2016-11-03 05:03] LABS: BETA 1 GLOBULIN 0.5 g/dL (0.4-0.6); BETA 2 GLOBULIN 0.3 g/dL (0.2-0.5); GAMMA GLOBULIN 1.1 g/dL (0.8-1.7)
[2016-11-03 10:06] LABS: HEMATOCRIT 37.9 % (34.0-47.0); MEAN CELL VOLUME 94.5 fl (81.0-99.0); MEAN CORPUSCULAR HEMOGLOBIN 31.5 pg (27.0-31.0); MEAN CORPUSCULAR HGB CONC 33.3 g/dL (33.0-37.0); RED CELL DISTRIBUTION WIDTH 13.6 % (11.5-14.5); WHITE BLOOD COUNT 5.4 K/uL (4.8-10.8)
--- NOTE | 2016-11-03 10:09 | CP.PCM.PN ---
<Zane Simons - Last Filed: 11/03/16 15:46> Subjective - Date & Time of Evaluation Date of Evaluation: 11/03/16 Time of Evaluation: 09:00 - Subjective Subjective: 36 y/o F- still waiting for insurance clearance for plastic surgery/ debridement of b/l buttock. Patient seen and examined this morning. pt admits b/ l buttock pain which is controlled with pain medications. pt denies any fever, chills, n/v, chest pain or SOB, had BM this morning. Objective - Vital Signs/Intake and Output Vital Signs (last 24 hours): Temp Pulse Resp BP Pulse Ox 97.7 F 59 L 20 99/59 L 99 11/03/16 07:52 11/03/16 07:52 11/03/16 07:52 11/03/16 07:52 11/03/16 07:52 - Medications Medications: Current Medications Enoxaparin Sodium (Lovenox) 40 mg SC DAILY [facility] PRN Reason: Protocol Last Admin: 10/31/16 11:30 Dose: 40 mg Ampicillin Sodium/Sulbactam (Sodium 3 gm/ Sodium Chloride) 100 mls @ 100 mls/ hr [facility] Last Admin: 11/03/16 05:13 Dose: 100 mls/hr Lactated Ringer's (Lactated Ringer's) 1,000 mls @ 100 mls/hr IV .Q10H [facility] Last Admin: 11/03/16 05:08 Dose: Not Given Morphine Sulfate (Morphine) 2 mg IVP Q4 PRN PRN Reason: Pain, moderate (4-7) Last Admin: 11/03/16 00:57 Dose: 2 mg Morphine Sulfate (Morphine) 4 mg IVP Q4 PRN PRN Reason: Pain, severe (8-10) - Labs Labs: 11/02/16 05:00 11/02/16 05:00 PT 13.6 Seconds (9.8-13.1) H 11/02/16 05:00 INR 1.3 (0.9-1.2) H 11/02/16 05:00 APTT 29.5 Seconds (25.6-37.1) 11/02/16 05:00 - Constitutional Appears: No Acute Distress - Head Exam Head Exam: ATRAUMATIC, NORMAL INSPECTION, NORMOCEPHALIC - Eye Exam Eye Exam: Normal appearance - ENT Exam ENT Exam: Normal Exam - Neck Exam Neck Exam: Normal Inspection - Respiratory Exam Respiratory Exam: Clear to Ausculation Bilateral - Cardiovascular Exam Cardiovascular Exam: REGULAR RHYTHM - GI/Abdominal Exam GI & Abdominal Exam: Soft, Normal Bowel Sounds - Extremities Exam Extremities Exam: Normal Capillary Refill, Normal Inspection. absent: Calf Tenderness - Back Exam Back Exam: absent: CVA tenderness (L), CVA tenderness (R) - Neurological Exam Neurological Exam: Alert, Awake, Oriented x3 Neuro motor strength exam: Left Upper Extremity: 5, Right Upper Extremity: 5, Left Lower Extremity: 5, Right Lower Extremity: 5 - Psychiatric Exam Psychiatric exam: Flat Affect - Skin Skin Exam: Normal Color - Additional Findings Additional findings: bilteral buttock and lower back tenderness, hyperpigmentation, masses, mildly warmth. Assessment and Plan - Assessment and Plan (Free Text) Assessment: A/P: 36 y/o F with sharp lower back and b/l buttock pain, possible soft tissue Necrosis/Cellulitis. waiting for insurance clearance for surgical debridement, today plastic surgery if it resolves. Plan remains same as yesterday. B/L Buttock Cellulitis/ possible soft tissue necrosis - Case discussed with Plastic surgery and recommendations appreciated - intervention/surgical debridement today late in afternoon , pt is cleared medically - NPO, IVF - Continue IV antibiotics and pain management - Unasyn 3g IVPD Q6H - MRI of pelvis and L-spine w/o contrast was done shows cystic foci and possible fibrosis & cellulitis, no disk herniation - Blood Culture: no growth - Clear CXR 10/31 Coagulopathy - PT/INR: 13.6/1.3 - will repeat and monitor DVT ppx - Lovenox on hold - Encourage ambulation <Ute Montano - Last Filed: 11/03/16 16:13> Objective - Vital Signs/Intake and Output Vital Signs (last 24 hours): Temp Pulse Resp BP Pulse Ox 97.7 F 59 L 20 99/59 L 99 11/03/16 10:00 11/03/16 10:00 11/03/16 10:00 11/03/16 10:11/03/16 10:00 - Medications Medications: Current Medications Enoxaparin Sodium (Lovenox) 40 mg SC DAILY [facility] PRN Reason: Protocol Last Admin: 10/31/16 11:30 Dose: 40 mg Ampicillin Sodium/Sulbactam (Sodium 3 gm/ Sodium Chloride) 100 mls @ 100 mls/ hr IVPB Q[facility]H [facility] Last Admin: 11/03/16 12:06 Dose: 100 mls/hr Lactated Ringer's (Lactated Ringer's) 1,000 mls @ 100 mls/hr IV .Q10H [facility] Last Admin: 11/03/16 12:34 Dose: Not Given Morphine Sulfate (Morphine) 2 mg IVP Q4 PRN PRN Reason: Pain, moderate (4-7) Last Admin: 11/03/16 00:57 Dose: 2 mg Morphine Sulfate (Morphine) 4 mg IVP Q4 PRN PRN Reason: Pain, severe (8-10) - Labs Labs: 11/03/16 09:30 11/03/16 09:30 PT 13.6 Seconds (9.8-13.1) H 11/02/16 05:00 INR 1.3 (0.9-1.2) H 11/02/16 05:00 APTT 29.5 Seconds (25.6-37.1) 11/02/16 05:00 Attending/Attestation - Attestation I have personally seen and examined this patient.: Yes I have fully participated in the care of the patient.: Yes I have reviewed all pertinent clinical information, including history, physical exam and plan: Yes
[2016-11-03 10:29] LABS: BLOOD UREA NITROGEN 9 mg/dl (7-17); CALCIUM 8.9 mg/dL (8.4-10.2); CARBON DIOXIDE 29 mmol/L (22-30); CHLORIDE 103 mmol/L (98-107); GFR AFRICAN-AMERICAN > 60; GLUCOSE,RANDOM 78 mg/dL (65-105); POTASSIUM 3.6 MMOL/L (3.6-5.0); SODIUM 139 mmol/l (132-148)
[2016-11-03] MEDS ORDERED: Bupivacaine 0.5% Inj(30mL) ONE (13:20)
[2016-11-03] MEDS ORDERED: EPINEPHrine 1 mg/ml (1:1000) Inj ONE (13:20)
[2016-11-03] MEDS ORDERED: Bupivacaine HCl 0.25% PF (30 ml) Inj ONE (13:20)
[2016-11-03] MEDS ORDERED: Propofol 10 mg/ml Inj (20 ML) ONE (13:49)
[2016-11-03] MEDS ORDERED: Midazolam 2 MG/2 ML VIAL ONE (13:50)
[2016-11-03] MEDS ORDERED: Succinylcholine 200 mg/10 ml Inj IV ONE (13:50)
[2016-11-03] MEDS ORDERED: Rocuronium 10 mg/ml (5 ml) ONE (13:50)
[2016-11-03] MEDS ORDERED: Neostigmine Methylsulfate 2 MG/2 ML ML IV ONE ×2 (13:51→13:57)
[2016-11-03] MEDS ORDERED: Lidocaine Hydrochloride 5 ML INJ ONE ×2 (13:51→13:58)
[2016-11-03] MEDS ORDERED: Lactated Ringer's 1,000 ML IV ONE ×2 (14:06→15:07)
[2016-11-03] MEDS ORDERED: Sodium Chloride 0.9% 1,000 ML IV ONE (16:55)
[2016-11-03] MEDS ORDERED: HYDROmorphone 0.5 mg/0.5 ml ISec IVP ONE ×2 (16:56→17:10)
[2016-11-03] MEDS ORDERED: HYDROmorphone 0.5 mg/0.5 ml ISec ONE ×2 (16:58→17:09)
[2016-11-03] MEDS ORDERED: HYDROmorphone 0.5 mg/0.5 ml ISec IVP STA (17:09)
--- NOTE | 2016-11-03 17:24 | PCM.SURG1 ---
Surgeon's Initial Post Op Note - Surgeon's Notes Surgeon: Dr. Chavez Third Mate: Dr. Saab PGY3, PGY1 Pre-Operative Diagnosis: Bilateral buttock and back necrotic soft tissue cellulitis Operative Findings: see op note Post-Operative Diagnosis: as above Operation Performed: Staged debridement of bilateral buttock and back necrotic tissue, flap delay and wound vac placement Specimen/Specimens Removed: bilateral buttock and back necrotic tissue Estimated Blood Loss: EBL {In ML}: 500 Blood Products Given: PRBC Date of Surgery/Procedure: 11/03/16 Time of Surgery/Procedure: 15:30
[2016-11-03] MEDS ORDERED: DiphenhydrAMINE 50 mg/ml Inj IVP PRN (17:39)
[2016-11-03] MEDS ORDERED: HYDROmorphone 0.5 mg/0.5 ml ISec IVP PRN (17:39)
[2016-11-04] MEDS: Ampicillin/Sulbactam 3 GM in Sodium Chloride 0.9% 100 ML IVPB SCH ×5 (01:00→23:11)
[2016-11-04 08:06] LABS: BASO % 0.3 % (0.0-2.0); EOS # 0.1 K/uL (0.0-0.7); EOS % 0.8 % (0.0-4.0); HEMATOCRIT 31.5 % (34.0-47.0); LYMPH # 1.1 K/uL (1.0-4.3); LYMPH % 7.3 % (20.0-40.0); MEAN CELL VOLUME 93.3 fl (81.0-99.0); MEAN CORPUSCULAR HEMOGLOBIN 30.7 pg (27.0-31.0); MEAN CORPUSCULAR HGB CONC 32.9 g/dL (33.0-37.0); MEAN PLATELET VOLUME 9.1 fl (7.2-11.7); MONO # 1.7 K/uL (0.0-0.8); MONO % 11.3 % (0.0-10.0); NEUT % 80.3 % (50.0-75.0); PLATELET COUNT 178 K/uL (130-400); RED CELL DISTRIBUTION WIDTH 15.4 % (11.5-14.5)
[2016-11-04 08:21] LABS: BLOOD UREA NITROGEN 9 mg/dl (7-17); CARBON DIOXIDE 28 mmol/L (22-30); CHLORIDE 102 mmol/L (98-107); GFR AFRICAN-AMERICAN > 60; GLUCOSE,RANDOM 100 mg/dL (65-105); SODIUM 137 mmol/l (132-148)
--- NOTE | 2016-11-04 08:39 | CP.PCM.PN ---
Subjective - Date & Time of Evaluation Date of Evaluation: 11/04/16 Time of Evaluation: 08:30 - Subjective Subjective: Patient seen and examined bedside. Lying in bed comfortably. Pain controlled on [employer]AR[employer]SULTANT pump. wound vac bilaterally to lower back Hemodynamically stable, afebrile No acute issues overnight Objective - Vital Signs/Intake and Output Vital Signs (last 24 hours): Temp Pulse Resp BP Pulse Ox 98.7 F 93 H 19 95/59 L 100 11/04/16 05:07 11/04/16 05:07 11/04/16 05:07 11/04/16 05:07 11/04/16 05:07 - Medications Medications: Current Medications Heparin Sodium (Porcine) (Heparin) 5,000 units SC Q12 JAMIR PRN Reason: Protocol Hydromorphone HCl (Dilaudid 0.2 Mg/Ml Electrical Sign Wirer) 0 mg IV CONT PRN; Protocol PRN Reason: Pain, moderate (4-7) Last Admin: 11/03/16 18:40 Dose: 0.2 mg Ampicillin Sodium/Sulbactam (Sodium 3 gm/ Sodium Chloride) 100 mls @ 100 mls/ hr IVPB Q6H [facility] Last Admin: 11/04/16 06:44 Dose: 100 mls/hr Lactated Ringer's (Lactated Ringer's) 1,000 mls @ 100 mls/hr IV .Q10H [facility] Last Admin: 11/03/16 12:34 Dose: Not Given Ondansetron HCl (Zofran Inj) 4 mg IVP Q6 PRN PRN Reason: Nausea/Vomiting - Labs Labs: 11/03/16 09:30 11/04/16 06:30 PT 13.6 Seconds (9.8-13.1) H 11/02/16 05:00 INR 1.3 (0.9-1.2) H 11/02/16 05:00 APTT 29.5 Seconds (25.6-37.1) 11/02/16 05:00 - Constitutional Appears: Non-toxic, No Acute Distress - Head Exam Head Exam: ATRAUMATIC, NORMAL INSPECTION, NORMOCEPHALIC - Eye Exam Eye Exam: EOMI, Normal appearance, PERRL Pupil Exam: NORMAL ACCOMODATION - ENT Exam ENT Exam: Mucous Membranes Moist, Normal Exam - Neck Exam Neck Exam: Full ROM, Normal Inspection - Respiratory Exam Respiratory Exam: Clear to Ausculation Bilateral, NORMAL BREATHING PATTERN. absent: Rales, Rhonchi, Wheezes - Cardiovascular Exam Cardiovascular Exam: REGULAR RHYTHM, RRR, +S1, +S2. absent: JVD - GI/Abdominal Exam GI & Abdominal Exam: Soft, Normal Bowel Sounds. absent: Distended, Guarding, Tenderness, Rebound - Rectal Exam Rectal Exam: Deferred - Extremities Exam Extremities Exam: Full ROM, Normal Capillary Refill, Normal Inspection. absent : Calf Tenderness, Pedal Edema - Back Exam Back Exam: NORMAL INSPECTION Additional comments: lower back surgical wound with bilateral wound vac in place - Neurological Exam Neurological Exam: Alert, Awake, CN II-XII Intact, Oriented x3 - Psychiatric Exam Psychiatric exam: Normal Affect, Normal Mood - Skin Skin Exam: Dry, Intact, Normal Color, Warm Assessment and Plan - Assessment and Plan (Free Text) Assessment: 36 years old female with no significant medical hx came in with 5-6 days of sharp left buttock pain radiating to the lower back, increased with sitting and turning of the trunk and associated with fever and generalized weakness the last 2 days. Her home medications provides minimal relief. No nausea, vomits, diarrhea, dysuria nor hx of trauma. patient gave history of bilateral buttock injections . Patient was diagnosed with bilateral buttock cellulitis and possible soft tissue necrosis , admitted to med/surg and started on IV medication and pain medication. MRI L-s spine showed cystic foci with tissue fibrosis and cellulitis. Plastic surgery was consulted and patient underwent surgical debridment with wound vac placement to lower back yesterday 11/03 1.B/L Buttock Cellulitis/ possible soft tissue necrosis MRI of pelvis and L-spine w/o contrast was done shows cystic foci and possible fibrosis & cellulitis, no disk herniation History of bilateral buttock injections Plastic surgery consulted s/p lower back debridment and wound vac placement Continue IV Unasyn and pain management Blood Culture: no growth follow up wound cx 2.Coagulopathy PT/INR: 13.6/1.3 unclear etiology 3. Acute blood loss anemia hgb dropped from 12 - 10 post surgery Continue monitoring 4.Leukocytosis WBC 14 on unasyn IV follow up wound cx 5.DVT ppx on heparin Encourage ambulation
--- NOTE | 2016-11-04 10:17 | CP.PCM.PN ---
Subjective - Date & Time of Evaluation Date of Evaluation: 11/04/16 Time of Evaluation: 10:15 - Subjective Subjective: Surgery: Dr. Sweet Patient feels great today. She reports having some pain at surgical site but otherwise no complaints. She tolerated reg diet last night. She understands to be OOB today. Per nursing no acute events overnight. Objective - Vital Signs/Intake and Output Vital Signs (last 24 hours): Temp Pulse Resp BP Pulse Ox 97.7 F 73 20 126/83 99 11/04/16 08:39 11/04/16 08:39 11/04/16 08:39 11/04/16 08:39 11/04/16 08:39 - Medications Medications: Current Medications Heparin Sodium (Porcine) (Heparin) 5,000 units SC Q12 JAMIR PRN Reason: Protocol Hydromorphone HCl (Dilaudid 0.2 Mg/Ml Shingle Packer) 0 mg IV CONT PRN; Protocol PRN Reason: Pain, moderate (4-7) Last Admin: 11/03/16 18:40 Dose: 0.2 mg Hydromorphone HCl (Dilaudid) 0.5 mg IVP Q3 PRN PRN Reason: Pain, severe (8-10) Ampicillin Sodium/Sulbactam (Sodium 3 gm/ Sodium Chloride) 100 mls @ 100 mls/ hr IVPB Q6H [facility] Last Admin: 11/04/16 06:44 Dose: 100 mls/hr Lactated Ringer's (Lactated Ringer's) 1,000 mls @ 100 mls/hr IV .Q10H [facility] Last Admin: 11/03/16 12:34 Dose: Not Given Ondansetron HCl (Zofran Inj) 4 mg IVP Q6 PRN PRN Reason: Nausea/Vomiting Tramadol HCl (Ultram) 50 mg PO Q6 PRN PRN Reason: Pain, Mild (1-3) - Labs Labs: 11/04/16 07:30 11/04/16 06:30 PT 13.6 Seconds (9.8-13.1) H 11/02/16 05:00 INR 1.3 (0.9-1.2) H 11/02/16 05:00 APTT 29.5 Seconds (25.6-37.1) 11/02/16 05:00 - Constitutional Appears: Non-toxic, No Acute Distress - Head Exam Head Exam: ATRAUMATIC, NORMOCEPHALIC - Eye Exam Eye Exam: EOMI, Normal appearance - ENT Exam ENT Exam: Mucous Membranes Moist - Respiratory Exam Respiratory Exam: NORMAL BREATHING PATTERN. absent: Respiratory Distress - Cardiovascular Exam Cardiovascular Exam: REGULAR RHYTHM. absent: Tachycardia - Back Exam Additional comments: wound vac in place w/ good seal - Neurological Exam Neurological Exam: Alert, Awake - Psychiatric Exam Psychiatric exam: Normal Affect, Normal Mood - Skin Skin Exam: Dry, Normal Color, Warm Assessment and Plan - Assessment and Plan (Free Text) Assessment: 36 y/o female s/p bilateral buttock and back debridement for necrotic soft tissue, flap delay, and wound vac placement POD1 Plan: -f/u am labs -cont reg diet -pain control -OOB at least 3x today -ok for DVT prophylaxis -d/c bales -plan for OR sunday AKWhite PGY3
[2016-11-04] MEDS: Lactated Ringer's 1,000 ML IV SCH ×2 (10:41→21:55)
[2016-11-04 12:08] LABS: WHITE BLOOD COUNT 14.9 K/uL (4.8-10.8)
[2016-11-04 12:21] LABS: EOSINOPHIL 1 % (0-7); NEUTROPHIL 78 % (42-75); TOTAL CELLS COUNTED 100
[2016-11-04] MEDS: HYDROmorphone 0.5 mg/0.5 ml ISec IVP PRN ×3 (16:45→23:08)
[2016-11-04] MEDS ORDERED: Benzocaine/Menthol (Cepacol) Lozenge PO PRN (21:05)
[2016-11-05] MEDS: HYDROmorphone 0.5 mg/0.5 ml ISec IVP PRN ×4 (02:30→20:48)
[2016-11-05] MEDS: Lactated Ringer's 1,000 ML IV SCH ×2 (04:07→14:36)
[2016-11-05] MEDS: Ampicillin/Sulbactam 3 GM in Sodium Chloride 0.9% 100 ML IVPB SCH ×4 (06:00→23:09)
[2016-11-05 07:26] LABS: BASO % 0.3 % (0.0-2.0); EOS # 0.4 K/uL (0.0-0.7); EOS % 3.1 % (0.0-4.0); HEMATOCRIT 29.3 % (34.0-47.0); LYMPH # 1.5 K/uL (1.0-4.3); LYMPH % 13.5 % (20.0-40.0); MEAN CELL VOLUME 93.9 fl (81.0-99.0); MEAN CORPUSCULAR HEMOGLOBIN 30.2 pg (27.0-31.0); MEAN CORPUSCULAR HGB CONC 32.2 g/dL (33.0-37.0); MEAN PLATELET VOLUME 8.6 fl (7.2-11.7); MONO # 1.7 K/uL (0.0-0.8); MONO % 14.9 % (0.0-10.0); NEUT # 7.8 K/uL (1.8-7.0); NEUT % 68.2 % (50.0-75.0); RED CELL DISTRIBUTION WIDTH 14.9 % (11.5-14.5); WHITE BLOOD COUNT 11.5 K/uL (4.8-10.8)
[2016-11-05 07:39] LABS: BLOOD UREA NITROGEN 5 mg/dl (7-17); CALCIUM 8.3 mg/dL (8.4-10.2); CHLORIDE 102 mmol/L (98-107); GFR AFRICAN-AMERICAN > 60; GLUCOSE,RANDOM 100 mg/dL (65-105); POTASSIUM 3.5 MMOL/L (3.6-5.0); SODIUM 139 mmol/l (132-148)
[2016-11-05 07:59] LABS: CARBON DIOXIDE 28 mmol/L (22-30)
--- NOTE | 2016-11-05 09:29 | CP.PCM.PN ---
Subjective - Date & Time of Evaluation Date of Evaluation: 11/05/16 Time of Evaluation: 07:45 - Subjective Subjective: Patient seen and examined bedside. Feeling better. Unable to rest well overnight. Hemodynamically stable, afebrile. Complains of pain to lower back where wound vacs are in place Able to void , passing gas and tolerating po intake Objective - Vital Signs/Intake and Output Vital Signs (last 24 hours): Temp Pulse Resp BP Pulse Ox 97.9 F 85 20 99/55 L 98 11/05/16 08:09 11/05/16 08:09 11/05/16 08:09 11/05/16 08:09 11/05/16 08:09 - Medications Medications: Current Medications Benzocaine/Menthol (Cepacol Sore Throat) 1 clara PO Q2 PRN PRN Reason: Sore Throat Last Admin: 11/04/16 21:53 Dose: 1 clara Docusate Sodium (Colace) 100 mg PO BID [facility] Last Admin: 11/05/16 08:41 Dose: 100 mg Ferrous Sulfate (Feosol) 325 mg PO BID [facility] Last Admin: 11/05/16 08:41 Dose: 325 mg Heparin Sodium (Porcine) (Heparin) 5,000 units SC Q12 JAMIR PRN Reason: Protocol Last Admin: 11/05/16 08:49 Dose: 5,000 units Hydromorphone HCl (Dilaudid) 0.5 mg IVP Q3 PRN PRN Reason: Pain, severe (8-10) Last Admin: 11/05/16 06:08 Dose: 0.5 mg Ampicillin Sodium/Sulbactam (Sodium 3 gm/ Sodium Chloride) 100 mls @ 100 mls/ hr IVPB Q6H [facility] Last Admin: 11/05/16 06:00 Dose: 100 mls/hr Lactated Ringer's (Lactated Ringer's) 1,000 mls @ 100 mls/hr IV .Q10H [facility] Last Admin: 11/05/16 04:07 Dose: Not Given Ondansetron HCl (Zofran Inj) 4 mg IVP Q6 PRN PRN Reason: Nausea/Vomiting Tramadol HCl (Ultram) 50 mg PO Q6 PRN PRN Reason: Pain, Mild (1-3) - Labs Labs: 11/05/16 07:00 11/05/16 07:00 PT 13.6 Seconds (9.8-13.1) H 11/02/16 05:00 INR 1.3 (0.9-1.2) H 11/02/16 05:00 APTT 29.5 Seconds (25.6-37.1) 11/02/16 05:00 - Constitutional Appears: Well, Non-toxic, No Acute Distress - Head Exam Head Exam: ATRAUMATIC, NORMAL INSPECTION, NORMOCEPHALIC - Eye Exam Eye Exam: EOMI, Normal appearance, PERRL Pupil Exam: NORMAL ACCOMODATION - ENT Exam ENT Exam: Mucous Membranes Moist, Normal Exam - Neck Exam Neck Exam: Full ROM, Normal Inspection - Respiratory Exam Respiratory Exam: Clear to Ausculation Bilateral. absent: Rales, Rhonchi, Wheezes - Cardiovascular Exam Cardiovascular Exam: REGULAR RHYTHM, RRR, +S1, +S2. absent: JVD - GI/Abdominal Exam GI & Abdominal Exam: Soft, Normal Bowel Sounds. absent: Distended, Guarding, Rebound - Rectal Exam Rectal Exam: Deferred - Extremities Exam Extremities Exam: Full ROM, Normal Capillary Refill, Normal Inspection. absent : Calf Tenderness, Pedal Edema - Back Exam Additional comments: lower bacl bilateral wound vacs in place - Neurological Exam Neurological Exam: Alert, Awake, CN II-XII Intact, Normal Gait, Oriented x3 - Psychiatric Exam Psychiatric exam: Normal Affect, Normal Mood - Skin Skin Exam: Dry, Intact, Normal Color, Warm Assessment and Plan - Assessment and Plan (Free Text) Assessment: 36 years old female with no significant medical hx came in with 5-6 days of sharp left buttock pain radiating to the lower back, increased with sitting and turning of the trunk and associated with fever and generalized weakness the last 2 days. Her home medications provides minimal relief. No nausea, vomits, diarrhea, dysuria nor hx of trauma. patient gave history of bilateral buttock injections . Patient was diagnosed with bilateral buttock cellulitis and possible soft tissue necrosis , admitted to med/surg and started on IV medication and pain medication. MRI L-s spine showed cystic foci with tissue fibrosis and cellulitis. Plastic surgery was consulted and patient underwent surgical debridment with wound vac placement to lower back yesterday 11/03 1.B/L Buttock Cellulitis/ possible soft tissue necrosis MRI of pelvis and L-spine w/o contrast was done showed cystic foci and possible fibrosis & cellulitis, no disk herniation History of bilateral buttock injections Plastic surgery consulted s/p lower back debridment and wound vac placement Continue IV Unasyn and pain management Blood Culture: no growth follow up wound cx 2.Coagulopathy PT/INR: 13.6/1.3 unclear etiology 3. Acute blood loss anemia s/p 2 unit PRBc transfusion in OR Hgb dropped from 12 - 9.4 post surgery Continue monitoring started ferrous sulfate 4.Leukocytosis WBC 11.5 on unasyn IV follow up wound cx 5.DVT ppx on heparin Encourage ambulation
[2016-11-05] MEDS ORDERED: Potassium Chloride 20 mEq ER Tab PO ONE (12:14)
--- NOTE | 2016-11-05 12:17 | CP.PCM.PN ---
Subjective - Date & Time of Evaluation Date of Evaluation: 11/05/16 Time of Evaluation: 08:00 - Subjective Subjective: PLASTIC SURGERY PROGRESS NOTE FOR DR. ESTEVES Patient seen and examined at bedside. She reports that she has a lot of pain where the drains are. The pain is the same as yesterday. She "feels like I did 1000 squats". She is tolerating her diet and denies nausea or vomiting. Both wound vacs in place on 125mmHg suction with no leak. Objective - Vital Signs/Intake and Output Vital Signs (last 24 hours): Temp Pulse Resp BP Pulse Ox 97.9 F 85 20 99/55 L 98 11/05/16 08:09 11/05/16 08:09 11/05/16 08:09 11/05/16 08:09 11/05/16 08:09 - Medications Medications: Current Medications Benzocaine/Menthol (Cepacol Sore Throat) 1 clara PO Q2 PRN PRN Reason: Sore Throat Last Admin: 11/04/16 21:53 Dose: 1 clara Docusate Sodium (Colace) 100 mg PO BID [facility] Last Admin: 11/05/16 08:41 Dose: 100 mg Ferrous Sulfate (Feosol) 325 mg PO BID [facility] Last Admin: 11/05/16 08:41 Dose: 325 mg Heparin Sodium (Porcine) (Heparin) 5,000 units SC Q12 JAMIR PRN Reason: Protocol Last Admin: 11/05/16 08:49 Dose: 5,000 units Hydromorphone HCl (Dilaudid) 0.5 mg IVP Q3 PRN PRN Reason: Pain, severe (8-10) Last Admin: 11/05/16 10:38 Dose: 0.5 mg Ampicillin Sodium/Sulbactam (Sodium 3 gm/ Sodium Chloride) 100 mls @ 100 mls/ hr IVPB Q6H [facility] Last Admin: 11/05/16 06:00 Dose: 100 mls/hr Lactated Ringer's (Lactated Ringer's) 1,000 mls @ 100 mls/hr IV .Q10H [facility] Last Admin: 11/05/16 04:07 Dose: Not Given Ondansetron HCl (Zofran Inj) 4 mg IVP Q6 PRN PRN Reason: Nausea/Vomiting Potassium Chloride (K-Dur 20 Meq Er Tab) 20 meq PO ONCE ONE Stop: 11/05/16 12:15 Tramadol HCl (Ultram) 50 mg PO Q6 PRN PRN Reason: Pain, Mild (1-3) - Labs Labs: 11/05/16 07:00 11/05/16 07:00 PT 13.6 Seconds (9.8-13.1) H 11/02/16 05:00 INR 1.3 (0.9-1.2) H 11/02/16 05:00 APTT 29.5 Seconds (25.6-37.1) 11/02/16 05:00 - Constitutional Appears: Non-toxic, No Acute Distress - Head Exam Head Exam: ATRAUMATIC, NORMAL INSPECTION - Respiratory Exam Respiratory Exam: NORMAL BREATHING PATTERN. absent: Respiratory Distress - Cardiovascular Exam Cardiovascular Exam: +S1, +S2 - Back Exam Additional comments: wound vacs in place with no leak - Neurological Exam Neurological Exam: Alert, Awake, Oriented x3 - Psychiatric Exam Psychiatric exam: Normal Affect, Normal Mood Assessment and Plan - Assessment and Plan (Free Text) Assessment: 36yo F s/p bilatearl buttock and back debridement for necrotic soft tissue, flap delay, wound vac placement POD#2 - Afebrile, VSS - WBC 11.5 - Hgb decreased slightly to 9.4 - Mild hypokalemia 3.5 - gave PO potassium - Keep wound vacs on suction 125mmHg - OOB at least 3x per day - Plan for OR Sunday after 5pm - Patient may have breakfast tomorrow but then NPO after that - Discussed plan with Dr. Scott Conway PGY-3
[2016-11-06] MEDS: HYDROmorphone 0.5 mg/0.5 ml ISec IVP PRN ×2 (05:55→20:55)
[2016-11-06] MEDS: Ampicillin/Sulbactam 3 GM in Sodium Chloride 0.9% 100 ML IVPB SCH ×3 (06:02→18:03)
[2016-11-06 06:52] LABS: BLOOD UREA NITROGEN 3 mg/dl (7-17); CALCIUM 8.9 mg/dL (8.4-10.2); CARBON DIOXIDE 29 mmol/L (22-30); CHLORIDE 101 mmol/L (98-107); GFR AFRICAN-AMERICAN > 60; GLUCOSE,RANDOM 92 mg/dL (65-105); POTASSIUM 3.6 MMOL/L (3.6-5.0); SODIUM 139 mmol/l (132-148)
[2016-11-06 06:55] LABS: BASO % 0.3 % (0.0-2.0); EOS # 0.2 K/uL (0.0-0.7); EOS % 2.2 % (0.0-4.0); LYMPH # 1.9 K/uL (1.0-4.3); LYMPH % 21.3 % (20.0-40.0); MEAN CELL VOLUME 93.4 fl (81.0-99.0); MEAN CORPUSCULAR HEMOGLOBIN 31.2 pg (27.0-31.0); MEAN CORPUSCULAR HGB CONC 33.4 g/dL (33.0-37.0); MONO # 1.5 K/uL (0.0-0.8); MONO % 16.3 % (0.0-10.0); NEUT # 5.4 K/uL (1.8-7.0); NEUT % 59.9 % (50.0-75.0); RED CELL DISTRIBUTION WIDTH 14.6 % (11.5-14.5); WHITE BLOOD COUNT 8.9 K/uL (4.8-10.8)
--- NOTE | 2016-11-06 11:04 | CP.PCM.PN ---
<Zane Simons - Last Filed: 11/06/16 15:30> Subjective - Date & Time of Evaluation Date of Evaluation: 11/06/16 Time of Evaluation: 10:15 - Subjective Subjective: Patient seen and examined. Afebrile, AAO and NAD and HD stable. pt denies any overnight issue, complaining of mild to moderate surgical site pain (wound vacs are in place) which is well controlled on pain meds. passing gas, no BM, denies any n/v, chest/abdo pain or SOB. Pt is NPO for OR after 5pm today, As per Plastic Surgery. Objective - Vital Signs/Intake and Output Vital Signs (last 24 hours): Temp Pulse Resp BP Pulse Ox 98.1 F 79 18 98/61 L 98 11/06/16 08:36 11/06/16 08:36 11/06/16 08:36 11/06/16 08:36 11/06/16 08:36 - Medications Medications: Current Medications Benzocaine/Menthol (Cepacol Sore Throat) 1 clara PO Q2 PRN PRN Reason: Sore Throat Last Admin: 11/04/16 21:53 Dose: 1 clara Docusate Sodium (Colace) 100 mg PO BID [facility] Last Admin: 11/06/16 08:23 Dose: 100 mg Ferrous Sulfate (Feosol) 325 mg PO BID [facility] Last Admin: 11/06/16 08:23 Dose: 325 mg Heparin Sodium (Porcine) (Heparin) 5,000 units SC Q12 JAMIR PRN Reason: Protocol Last Admin: 11/05/16 23:10 Dose: 5,000 units Hydromorphone HCl (Dilaudid) 0.5 mg IVP Q3 PRN PRN Reason: Pain, severe (8-10) Last Admin: 11/06/16 05:55 Dose: 0.5 mg Ampicillin Sodium/Sulbactam (Sodium 3 gm/ Sodium Chloride) 100 mls @ 100 mls/ hr IVPB Q6H [facility] Last Admin: 11/06/16 06:02 Dose: 100 mls/hr Lactated Ringer's (Lactated Ringer's) 1,000 mls @ 100 mls/hr IV .Q10H [facility] Ondansetron HCl (Zofran Inj) 4 mg IVP Q6 PRN PRN Reason: Nausea/Vomiting Tramadol HCl (Ultram) 50 mg PO Q6 PRN PRN Reason: Pain, Mild (1-3) Last Admin: 11/05/16 15:40 Dose: 50 mg - Labs Labs: 11/06/16 06:00 11/06/16 06:50 PT 13.6 Seconds (9.8-13.1) H 11/02/16 05:00 INR 1.3 (0.9-1.2) H 11/02/16 05:00 APTT 29.5 Seconds (25.6-37.1) 11/02/16 05:00 - Constitutional Appears: No Acute Distress - Head Exam Head Exam: ATRAUMATIC, NORMAL INSPECTION, NORMOCEPHALIC - Eye Exam Eye Exam: EOMI, Normal appearance, PERRL Pupil Exam: NORMAL ACCOMODATION, PERRL - ENT Exam ENT Exam: Mucous Membranes Moist - Neck Exam Neck Exam: Normal Inspection - Respiratory Exam Respiratory Exam: Clear to Ausculation Bilateral, NORMAL BREATHING PATTERN - Cardiovascular Exam Cardiovascular Exam: REGULAR RHYTHM, +S1, +S2 - GI/Abdominal Exam GI & Abdominal Exam: Soft, Hypoactive Bowel Sounds. absent: Tenderness - Extremities Exam Extremities Exam: Normal Capillary Refill, Normal Inspection. absent: Calf Tenderness - Back Exam Back Exam: absent: CVA tenderness (L), CVA tenderness (R) - Neurological Exam Neurological Exam: Alert, Awake, CN II-XII Intact, Oriented x3 Neuro motor strength exam: Left Upper Extremity: 5, Right Upper Extremity: 5, Left Lower Extremity: 5, Right Lower Extremity: 5 - Psychiatric Exam Psychiatric exam: Normal Mood - Skin Skin Exam: Dry, Intact, Normal Color, Warm - Additional Findings Additional findings: lower back bilateral wound vacs in place Assessment and Plan - Assessment and Plan (Free Text) Assessment: A/P: 36yo F s/p bilatearl buttock and back debridement for necrotic soft tissue, flap delay, wound vac placement POD#2 B/L Buttock Cellulitis/ possible soft tissue necrosis -MRI of pelvis and L-spine w/o contrast was done showed cystic foci and possible fibrosis & cellulitis, no disk herniation -History of bilateral buttock injections -Plastic surgery consulted -s/p lower back debridment and wound vac placement 11/03 -Continue IV Unasyn and pain management -Blood Culture: no growth -follow up wound cx Coagulopathy -PT/INR: 13.6/1.3 on 11/02 -unclear etiology Acute blood loss anemia -s/p 2 unit PRBc transfusion in OR, dropped to 9.4 -H/H: 10.0/ 30 today, will monitor -started ferrous sulfate and colace Leukocytosis -Resolved -WBC: 8.9 -on unasyn IV DVT ppx -on heparin -Advised ambulation <Cami Rai - Last Filed: 11/06/16 15:56> Objective - Vital Signs/Intake and Output Vital Signs (last 24 hours): Temp Pulse Resp BP Pulse Ox 98.1 F 79 18 98/61 L 98 11/06/16 08:36 11/06/16 08:36 11/06/16 08:36 11/06/16 08:36 11/06/16 08:36 - Medications Medications: Current Medications Benzocaine/Menthol (Cepacol Sore Throat) 1 clara PO Q2 PRN PRN Reason: Sore Throat Last Admin: 11/04/16 21:53 Dose: 1 clara Docusate Sodium (Colace) 100 mg PO BID [facility] Last Admin: 11/06/16 08:23 Dose: 100 mg Ferrous Sulfate (Feosol) 325 mg PO BID [facility] Last Admin: 11/06/16 08:23 Dose: 325 mg Heparin Sodium (Porcine) (Heparin) 5,000 units SC Q12 [facility] PRN Reason: Protocol Last Admin: 11/05/16 23:10 Dose: 5,000 units Hydromorphone HCl (Dilaudid) 0.5 mg IVP Q3 PRN PRN Reason: Pain, severe (8-10) Last Admin: 11/06/16 05:55 Dose: 0.5 mg Ampicillin Sodium/Sulbactam (Sodium 3 gm/ Sodium Chloride) 100 mls @ 100 mls/ hr IVPB Q6H [facility] Last Admin: 11/06/16 12:28 Dose: 100 mls/hr Lactated Ringer's (Lactated Ringer's) 1,000 mls @ 100 mls/hr IV .Q10H [facility] Ondansetron HCl (Zofran Inj) 4 mg IVP Q6 PRN PRN Reason: Nausea/Vomiting Tramadol HCl (Ultram) 50 mg PO Q6 PRN PRN Reason: Pain, Mild (1-3) Last Admin: 11/05/16 15:40 Dose: 50 mg - Labs Labs: 11/06/16 06:00 11/06/16 06:50 PT 13.6 Seconds (9.8-13.1) H 11/02/16 05:00 INR 1.3 (0.9-1.2) H 11/02/16 05:00 APTT 29.5 Seconds (25.6-37.1) 11/02/16 05:00 Attending/Attestation - Attestation I have personally seen and examined this patient.: Yes I have fully participated in the care of the patient.: Yes I have reviewed all pertinent clinical information, including history, physical exam and plan: Yes Notes (Text): 11/06/16 15:55 agree with findings an dplan as above.
[2016-11-06] MEDS ORDERED: Midazolam 2 MG/2 ML VIAL ONE (17:54)
[2016-11-06] MEDS ORDERED: Propofol 10 mg/ml Inj (20 ML) ONE (17:54)
[2016-11-06] MEDS ORDERED: Rocuronium 10 mg/ml (5 ml) ONE (17:54)
[2016-11-06] MEDS ORDERED: Lactated Ringer's 1,000 ML IV ONE (18:23)
[2016-11-06] MEDS ORDERED: Ampicillin/Sulbactam 1.5 gm Inj IVPB ONE (18:40)
[2016-11-06] MEDS ORDERED: Sodium Chloride 0.9% 500 ML IV ONE (19:00)
[2016-11-06] MEDS ORDERED: Dexamethasone 4 mg/1 ml ONE (19:00)
[2016-11-06] MEDS: Sodium Chloride 0.9% 500 ML IV ONE ×2 (19:00→22:00)
[2016-11-06] MEDS ORDERED: Neostigmine Methylsulfate 3mg/3ml Syringe IV ONE (20:05)
[2016-11-06] MEDS ORDERED: Succinylcholine 200 mg/10 ml Inj IV ONE (20:26)
[2016-11-06] MEDS ORDERED: Neostigmine Methylsulfate 2 MG/2 ML ML IV ONE (20:34)
--- NOTE | 2016-11-06 20:41 | PCM.SURG1 ---
Surgeon's Initial Post Op Note - Surgeon's Notes Surgeon: Dr. Chavez Returns Processor: Dr. Adhikari, Dr. Saab PGY3, Dr. Moreau PGY1 Type of Anesthesia: General Endo Pre-Operative Diagnosis: bilateraly buttock and hip fat necrosis Operative Findings: see operative report Post-Operative Diagnosis: same Operation Performed: second stage bilateral buttock and hip debridement, flap advancement, and wound vac placement Specimen/Specimens Removed: bilateral hip fat necrosis and skin Estimated Blood Loss: EBL {In ML}: 500 Blood Products Given: PRBC Drains Used: Wound Vac Post-Op Condition: Good Date of Surgery/Procedure: 11/06/16 Time of Surgery/Procedure: 20:41
[2016-11-06] MEDS ORDERED: HYDROmorphone 0.5 mg/0.5 ml ISec IVP PRN (20:50)
[2016-11-06 21:24] LABS: HEMATOCRIT 28.8 % (34.0-47.0); MEAN CELL VOLUME 92.7 fl (81.0-99.0); MEAN CORPUSCULAR HEMOGLOBIN 30.5 pg (27.0-31.0); MEAN CORPUSCULAR HGB CONC 32.9 g/dL (33.0-37.0); RED CELL DISTRIBUTION WIDTH 14.9 % (11.5-14.5); WHITE BLOOD COUNT 15.7 K/uL (4.8-10.8)
[2016-11-07] MEDS: Lactated Ringer's 1,000 ML IV SCH (01:35)
[2016-11-07] MEDS: Ampicillin/Sulbactam 3 GM in Sodium Chloride 0.9% 100 ML IVPB SCH ×4 (05:45→19:00)
[2016-11-07 06:59] LABS: BASO % 0.2 % (0.0-2.0); EOS % 0.2 % (0.0-4.0); HEMATOCRIT 23.9 % (34.0-47.0); LYMPH # 0.9 K/uL (1.0-4.3); LYMPH % 8.3 % (20.0-40.0); MEAN CELL VOLUME 92.6 fl (81.0-99.0); MEAN CORPUSCULAR HEMOGLOBIN 30.7 pg (27.0-31.0); MEAN CORPUSCULAR HGB CONC 33.1 g/dL (33.0-37.0); MEAN PLATELET VOLUME 9.1 fl (7.2-11.7); MONO # 1.7 K/uL (0.0-0.8); MONO % 14.6 % (0.0-10.0); NEUT # 8.8 K/uL (1.8-7.0); NEUT % 76.7 % (50.0-75.0); RED CELL DISTRIBUTION WIDTH 14.7 % (11.5-14.5); WHITE BLOOD COUNT 11.4 K/uL (4.8-10.8)
[2016-11-07 07:02] LABS: BLOOD UREA NITROGEN 8 mg/dl (7-17); CALCIUM 7.9 mg/dL (8.4-10.2); CARBON DIOXIDE 30 mmol/L (22-30); CHLORIDE 101 mmol/L (98-107); GFR AFRICAN-AMERICAN > 60; GLUCOSE,RANDOM 107 mg/dL (65-105); POTASSIUM 4.6 MMOL/L (3.6-5.0); SODIUM 137 mmol/l (132-148)
--- NOTE | 2016-11-07 08:08 | CP.PCM.PN ---
Subjective - Date & Time of Evaluation Date of Evaluation: 11/07/16 Time of Evaluation: 08:06 - Subjective Subjective: Surgery: Dr. Sweet Patient reports feeling sad this morning. Pain worse than first operation. She denies chest pain or SOB. She is tolerating diet. She states she will be getting OOB ambulating today. She denies f/c. Per nursing no acute events overnight, 1 wound vac with 500cc/bloodtinged output, 2 wound vac with minimal output. Objective - Vital Signs/Intake and Output Vital Signs (last 24 hours): Temp Pulse Resp BP Pulse Ox 98.4 F 106 H 18 109/65 100 11/07/16 07:34 11/07/16 07:34 11/07/16 07:34 11/07/16 07:34 11/07/16 07:34 Intake and Output: 11/07/16 11/07/16 06:59 18:59 Intake Total 1705 Output Total 300 Balance 1405 - Medications Medications: Current Medications Benzocaine/Menthol (Cepacol Sore Throat) 1 clara PO Q2 PRN PRN Reason: Sore Throat Last Admin: 11/04/16 21:53 Dose: 1 clara Docusate Sodium (Colace) 100 mg PO BID [facility] Last Admin: 11/06/16 16:19 Dose: Not Given Ferrous Sulfate (Feosol) 325 mg PO BID [facility] Last Admin: 11/06/16 16:19 Dose: Not Given Heparin Sodium (Porcine) (Heparin) 5,000 units SC Q12 [facility] PRN Reason: Protocol Last Admin: 11/05/16 23:10 Dose: 5,000 units Hydromorphone HCl (Dilaudid) 1 mg IVP Q4 PRN PRN Reason: Pain, severe (8-10) Last Admin: 11/07/16 05:53 Dose: 1 mg Hydromorphone HCl (Dilaudid) 0.5 mg IVP Q3 PRN PRN Reason: Pain, moderate (4-7) Last Admin: 11/06/16 20:55 Dose: 0.5 mg Ampicillin Sodium/Sulbactam (Sodium 3 gm/ Sodium Chloride) 100 mls @ 100 mls/ hr IVPB Q6H [facility] Last Admin: 11/07/16 05:45 Dose: 100 mls/hr Lactated Ringer's (Lactated Ringer's) 1,000 mls @ 100 mls/hr IV .Q10H [facility] Last Admin: 11/07/16 01:35 Dose: 100 mls/hr Ondansetron HCl (Zofran Inj) 4 mg IVP Q6 PRN PRN Reason: Nausea/Vomiting Tramadol HCl (Ultram) 50 mg PO Q6 PRN PRN Reason: Pain, Mild (1-3) Last Admin: 11/05/16 15:40 Dose: 50 mg - Labs Labs: 11/07/16 06:20 11/07/16 06:20 PT 13.6 Seconds (9.8-13.1) H 11/02/16 05:00 INR 1.3 (0.9-1.2) H 11/02/16 05:00 APTT 29.5 Seconds (25.6-37.1) 11/02/16 05:00 - Constitutional Appears: Non-toxic, No Acute Distress - Head Exam Head Exam: ATRAUMATIC, NORMOCEPHALIC - Eye Exam Eye Exam: EOMI, Normal appearance - ENT Exam ENT Exam: Mucous Membranes Moist - Respiratory Exam Respiratory Exam: NORMAL BREATHING PATTERN. absent: Respiratory Distress - Cardiovascular Exam Cardiovascular Exam: REGULAR RHYTHM. absent: Tachycardia - Extremities Exam Extremities Exam: Normal Inspection. absent: Calf Tenderness - Neurological Exam Neurological Exam: Alert, Awake - Psychiatric Exam Psychiatric exam: Normal Affect, Normal Mood - Skin Skin Exam: Dry, Normal Color, Warm Assessment and Plan - Assessment and Plan (Free Text) Assessment: 36 y/o female s/p 2nd stage bilateral buttock, hip, and back fat necrosis debridement w/ flap advancement and wound vac placement POD1 Plan: -transfuse 2 units PRBC -monitor wound vac output -keep wound vacs to suction at all times, 125mmHg pressure -reg diet -OOB at least 3 times today -cont Unasyn IV -cont IVFs -DVT prophylaxis -d/w Dr. Micki Guzman PGY3
--- NOTE | 2016-11-07 08:09 | CP.PCM.PN ---
<Zane Simons - Last Filed: 11/07/16 13:01> Subjective - Date & Time of Evaluation Date of Evaluation: 11/07/16 Time of Evaluation: 08:00 - Subjective Subjective: Patient seen and examined at bedside. S/p debridment on 11/03 and 11/06, POD1, Transfused. c/o moderate pain at surgical site, wound vac is in place. pt feels tired/sad and very frustrated b/c she has to go to OR one more time on Sunday. Pt tolerating PO diet, voiding freely, denies BM. no n/v, fever, chest/abdo or SOB. Objective - Vital Signs/Intake and Output Vital Signs (last 24 hours): Temp Pulse Resp BP Pulse Ox 98.4 F 106 H 18 109/65 100 11/07/16 07:34 11/07/16 07:34 11/07/16 07:34 11/07/16 07:34 11/07/16 07:34 Intake and Output: 11/07/16 11/07/16 06:59 18:59 Intake Total 1705 Output Total 300 Balance 1405 - Medications Medications: Current Medications Benzocaine/Menthol (Cepacol Sore Throat) 1 clara PO Q2 PRN PRN Reason: Sore Throat Last Admin: 11/04/16 21:53 Dose: 1 clara Docusate Sodium (Colace) 100 mg PO BID [facility] Last Admin: 11/06/16 16:19 Dose: Not Given Ferrous Sulfate (Feosol) 325 mg PO BID [facility] Last Admin: 11/06/16 16:19 Dose: Not Given Heparin Sodium (Porcine) (Heparin) 5,000 units SC Q12 [facility] PRN Reason: Protocol Last Admin: 11/05/16 23:10 Dose: 5,000 units Hydromorphone HCl (Dilaudid) 1 mg IVP Q4 PRN PRN Reason: Pain, severe (8-10) Last Admin: 11/07/16 05:53 Dose: 1 mg Hydromorphone HCl (Dilaudid) 0.5 mg IVP Q3 PRN PRN Reason: Pain, moderate (4-7) Last Admin: 11/06/16 20:55 Dose: 0.5 mg Ampicillin Sodium/Sulbactam (Sodium 3 gm/ Sodium Chloride) 100 mls @ 100 mls/ hr IVPB Q6H [facility] Last Admin: 11/07/16 05:45 Dose: 100 mls/hr Lactated Ringer's (Lactated Ringer's) 1,000 mls @ 100 mls/hr IV .Q10H [facility] Last Admin: 11/07/16 01:35 Dose: 100 mls/hr Ondansetron HCl (Zofran Inj) 4 mg IVP Q6 PRN PRN Reason: Nausea/Vomiting Tramadol HCl (Ultram) 50 mg PO Q6 PRN PRN Reason: Pain, Mild (1-3) Last Admin: 11/05/16 15:40 Dose: 50 mg - Labs Labs: 11/07/16 06:20 11/07/16 06:20 PT 13.6 Seconds (9.8-13.1) H 11/02/16 05:00 INR 1.3 (0.9-1.2) H 11/02/16 05:00 APTT 29.5 Seconds (25.6-37.1) 11/02/16 05:00 - Constitutional Appears: No Acute Distress - Head Exam Head Exam: ATRAUMATIC, NORMAL INSPECTION, NORMOCEPHALIC - Eye Exam Eye Exam: Normal appearance - ENT Exam ENT Exam: Mucous Membranes Moist - Neck Exam Neck Exam: Normal Inspection - Respiratory Exam Respiratory Exam: Clear to Ausculation Bilateral, NORMAL BREATHING PATTERN - Cardiovascular Exam Cardiovascular Exam: REGULAR RHYTHM, +S1, +S2 - GI/Abdominal Exam GI & Abdominal Exam: Soft, Normal Bowel Sounds - Extremities Exam Extremities Exam: Normal Capillary Refill. absent: Calf Tenderness, Pedal Edema - Back Exam Back Exam: absent: CVA tenderness (L), CVA tenderness (R) - Neurological Exam Neurological Exam: Alert, Awake, CN II-XII Intact, Oriented x3 - Psychiatric Exam Psychiatric exam: Flat Affect - Skin Skin Exam: Dry, Intact, Normal Color, Warm Assessment and Plan - Assessment and Plan (Free Text) Assessment: A/P: 36yo F s/p stage two bilatearl buttock and back debridement for necrotic soft tissue, flap delay, wound vac placement on 11/03 and 11/06. B/L Buttock Cellulitis/ possible soft tissue necrosis -MRI of pelvis and L-spine w/o contrast was done showed cystic foci and possible fibrosis & cellulitis, no disk herniation -History of bilateral buttock injections -Plastic surgery consulted and rec' appreciated -s/p lower back debridment and wound vac placement 11/03 and 11/06 -Third stage OR intervention on sun at noon, NPO on sun and 2 U PRBCs on hold for OR -Continue IV Unasyn and pain management -Continue LR -Blood Culture: no growth Coagulopathy -PT/INR: 13.6/1.3 on 11/02 -unclear etiology Acute blood loss anemia -s/p PRBc transfusion, transfuse 2 U PRBCs as per plastic surgery -H/H: 7.9/23.9 today, will monitor -Continue ferrous sulfate and colace Leukocytosis -WBC: 11.4 -on unasyn IV DVT ppx - SCD -Advised ambulation <Cami Rai - Last Filed: 11/07/16 13:47> Objective - Vital Signs/Intake and Output Vital Signs (last 24 hours): Temp Pulse Resp BP Pulse Ox 98.4 F 106 H 18 109/65 100 11/07/16 10:00 11/07/16 10:00 11/07/16 10:00 11/07/16 07:34 11/07/16 10:00 Intake and Output: 11/07/16 11/07/16 06:59 18:59 Intake Total 1705 Output Total 300 Balance 1405 - Medications Medications: Current Medications Benzocaine/Menthol (Cepacol Sore Throat) 1 clara PO Q2 PRN PRN Reason: Sore Throat Last Admin: 11/04/16 21:53 Dose: 1 clara Docusate Sodium (Colace) 100 mg PO BID [facility] Last Admin: 11/07/16 09:36 Dose: 100 mg Ferrous Sulfate (Feosol) 325 mg PO BID [facility] Last Admin: 11/07/16 09:36 Dose: 325 mg Heparin Sodium (Porcine) (Heparin) 5,000 units SC Q12 [facility] PRN Reason: Protocol Last Admin: 11/05/16 23:10 Dose: 5,000 units Hydromorphone HCl (Dilaudid) 1 mg IVP Q4 PRN PRN Reason: Pain, severe (8-10) Last Admin: 11/07/16 10:31 Dose: 1 mg Hydromorphone HCl (Dilaudid) 0.5 mg IVP Q3 PRN PRN Reason: Pain, moderate (4-7) Last Admin: 11/06/16 20:55 Dose: 0.5 mg Ampicillin Sodium/Sulbactam (Sodium 3 gm/ Sodium Chloride) 100 mls @ 100 mls/ hr IVPB Q6H [facility] Last Admin: 11/07/16 05:45 Dose: 100 mls/hr Lactated Ringer's (Lactated Ringer's) 1,000 mls @ 100 mls/hr IV .Q10H [facility] Last Admin: 11/07/16 01:35 Dose: 100 mls/hr Ondansetron HCl (Zofran Inj) 4 mg IVP Q6 PRN PRN Reason: Nausea/Vomiting Tramadol HCl (Ultram) 50 mg PO Q6 PRN PRN Reason: Pain, Mild (1-3) Last Admin: 11/05/16 15:40 Dose: 50 mg - Labs Labs: 11/07/16 06:20 11/07/16 06:20 PT 13.6 Seconds (9.8-13.1) H 11/02/16 05:00 INR 1.3 (0.9-1.2) H 11/02/16 05:00 APTT 29.5 Seconds (25.6-37.1) 11/02/16 05:00 Attending/Attestation - Attestation I have personally seen and examined this patient.: Yes I have fully participated in the care of the patient.: Yes I have reviewed all pertinent clinical information, including history, physical exam and plan: Yes Notes (Text): 11/07/16 13:46 pt seenexamined bedside with resident agree with findings and plan as above patient resting wtih adequate pain control discussed with Dr. Chavez, will require additional procedure at this time continue IV ABX VSS NAD
[2016-11-07 19:51] LABS: Interpretation Negative (Negative)
[2016-11-08] MEDS: Ampicillin/Sulbactam 3 GM in Sodium Chloride 0.9% 100 ML IVPB SCH ×4 (00:48→20:00)
[2016-11-08] MEDS: Lactated Ringer's 1,000 ML IV SCH ×3 (06:24→21:19)
[2016-11-08 07:30] LABS: BASO % 0.3 % (0.0-2.0); EOS # 0.3 K/uL (0.0-0.7); EOS % 2.3 % (0.0-4.0); LYMPH # 1.6 K/uL (1.0-4.3); LYMPH % 13.7 % (20.0-40.0); MEAN CORPUSCULAR HEMOGLOBIN 30.9 pg (27.0-31.0); MEAN CORPUSCULAR HGB CONC 33.9 g/dL (33.0-37.0); MEAN PLATELET VOLUME 8.4 fl (7.2-11.7); MONO # 1.9 K/uL (0.0-0.8); MONO % 16.9 % (0.0-10.0); NEUT # 7.6 K/uL (1.8-7.0); NEUT % 66.8 % (50.0-75.0); WHITE BLOOD COUNT 11.3 K/uL (4.8-10.8)
[2016-11-08 07:46] LABS: BLOOD UREA NITROGEN 5 mg/dl (7-17); CALCIUM 8.1 mg/dL (8.4-10.2); CARBON DIOXIDE 27 mmol/L (22-30); CHLORIDE 100 mmol/L (98-107); GFR AFRICAN-AMERICAN > 60; GLUCOSE,RANDOM 97 mg/dL (65-105); SODIUM 137 mmol/l (132-148)
[2016-11-08 07:58] LABS: PARTIAL THROMBOPLASTIN TIME 28.2 Seconds (25.6-37.1)
--- NOTE | 2016-11-08 08:57 | CP.PCM.PN ---
<Sonia Kay - Last Filed: 11/08/16 10:12> Subjective - Date & Time of Evaluation Date of Evaluation: 11/08/16 Time of Evaluation: 08:45 - Subjective Subjective: Patient seen and examined. S/p debridment on 11/03 and 11/06, POD2. Afebrile, NAD , No acute event over night. C/o pain which is controlled on pain meds. pt was able to ambulate to bathroom, voiding freely, denies BM since 11/03 (Wound vac in place b/l- sanguineous drainage). pt is NPO for OR today at noon. pt denies any N/V, chills, chest/abdo or dyspnea. Objective - Vital Signs/Intake and Output Vital Signs (last 24 hours): Temp Pulse Resp BP Pulse Ox 99.1 F 93 H 20 98/61 L 98 11/08/16 08:42 11/08/16 08:42 11/08/16 08:42 11/08/16 08:42 11/08/16 08:42 - Medications Medications: Current Medications Benzocaine/Menthol (Cepacol Sore Throat) 1 clara PO Q2 PRN PRN Reason: Sore Throat Last Admin: 11/04/16 21:53 Dose: 1 clara Docusate Sodium (Colace) 100 mg PO BID [facility] Last Admin: 11/08/16 08:32 Dose: Not Given Ferrous Sulfate (Feosol) 325 mg PO BID [facility] Last Admin: 11/08/16 08:32 Dose: Not Given Heparin Sodium (Porcine) (Heparin) 5,000 units SC Q12 [facility] PRN Reason: Protocol Last Admin: 11/07/16 21:39 Dose: 5,000 units Hydromorphone HCl (Dilaudid) 1 mg IVP Q4 PRN PRN Reason: Pain, severe (8-10) Last Admin: 11/08/16 05:16 Dose: 1 mg Hydromorphone HCl (Dilaudid) 0.5 mg IVP Q3 PRN PRN Reason: Pain, moderate (4-7) Last Admin: 11/06/16 20:55 Dose: 0.5 mg Ampicillin Sodium/Sulbactam (Sodium 3 gm/ Sodium Chloride) 100 mls @ 100 mls/ hr IVPB Q6H [facility] Last Admin: 11/08/16 06:22 Dose: 100 mls/hr Lactated Ringer's (Lactated Ringer's) 1,000 mls @ 100 mls/hr IV .Q10H [facility] Stop: 11/09/16 09:01 Last Admin: 11/08/16 06:24 Dose: 100 mls/hr Ondansetron HCl (Zofran Inj) 4 mg IVP Q6 PRN PRN Reason: Nausea/Vomiting Tramadol HCl (Ultram) 50 mg PO Q6 PRN PRN Reason: Pain, Mild (1-3) Last Admin: 11/05/16 15:40 Dose: 50 mg - Labs Labs: 11/08/16 06:35 11/08/16 06:35 PT 13.4 Seconds (9.8-13.1) H 11/08/16 07:10 INR 1.3 (0.9-1.2) H 11/08/16 07:10 APTT 28.2 Seconds (25.6-37.1) 11/08/16 07:10 - Constitutional Appears: No Acute Distress - Head Exam Head Exam: ATRAUMATIC - Eye Exam Eye Exam: Normal appearance - ENT Exam ENT Exam: Mucous Membranes Moist - Neck Exam Neck Exam: Normal Inspection - Respiratory Exam Respiratory Exam: Clear to Ausculation Bilateral, NORMAL BREATHING PATTERN - Cardiovascular Exam Cardiovascular Exam: REGULAR RHYTHM, +S1, +S2 - GI/Abdominal Exam GI & Abdominal Exam: Soft, Hypoactive Bowel Sounds - Extremities Exam Extremities Exam: Normal Capillary Refill, Normal Inspection - Neurological Exam Neurological Exam: Alert, CN II-XII Intact, Oriented x3 - Psychiatric Exam Psychiatric exam: Normal Mood - Skin Skin Exam: Dry, Intact, Normal Color, Warm - Additional Findings Additional findings: b/l buttock wound vac in place- sanguineous drainage Assessment and Plan - Assessment and Plan (Free Text) Assessment: A/P: 36 y/o F s/p stage two bilatearl buttock and back debridement for necrotic soft tissue, flap delay, wound vac placement on 11/03 and 11/06. NPO for OR today, as per plastic surgery B/L Buttock Cellulitis/ possible soft tissue necrosis -MRI of pelvis and L-spine w/o contrast was done showed cystic foci and possible fibrosis & cellulitis, no disk herniation -History of bilateral buttock injections -Plastic surgery consulted and rec' appreciated -s/p lower back debridment and wound vac placement 11/03 and 11/06 -Third stage OR intervention today at noon, NPO -Continue IV Unasyn and pain management -Blood Culture: no growth Coagulopathy -PT/INR: 13.4/1.3 today -unclear etiology Acute blood loss anemia -s/p PRBc transfusion, 5 U since admission and 2 U on hold -H/H: 9.9/29.0 today, will monitor -ferrous sulfate and colace on hold for today Leukocytosis -WBC: 11.3 -Continue unasyn IV DVT ppx - SCD -ambulation Preventive Screening -HIV nonreactive -Hep B antigen, Hep C Ab negative <Cami Rai - Last Filed: 11/08/16 11:40> Objective - Vital Signs/Intake and Output Vital Signs (last 24 hours): Temp Pulse Resp BP Pulse Ox 99.1 F 93 H 20 98/61 L 98 11/08/16 08:42 11/08/16 08:42 11/08/16 08:42 11/08/16 08:42 11/08/16 08:42 - Medications Medications: Current Medications Benzocaine/Menthol (Cepacol Sore Throat) 1 clara PO Q2 PRN PRN Reason: Sore Throat Last Admin: 11/04/16 21:53 Dose: 1 clara Docusate Sodium (Colace) 100 mg PO BID [facility] Last Admin: 11/08/16 08:32 Dose: Not Given Ferrous Sulfate (Feosol) 325 mg PO BID [facility] Last Admin: 11/08/16 08:32 Dose: Not Given Heparin Sodium (Porcine) (Heparin) 5,000 units SC Q12 [facility] PRN Reason: Protocol Last Admin: 11/07/16 21:39 Dose: 5,000 units Hydromorphone HCl (Dilaudid) 1 mg IVP Q4 PRN PRN Reason: Pain, severe (8-10) Last Admin: 11/08/16 05:16 Dose: 1 mg Hydromorphone HCl (Dilaudid) 0.5 mg IVP Q3 PRN PRN Reason: Pain, moderate (4-7) Last Admin: 11/06/16 20:55 Dose: 0.5 mg Ampicillin Sodium/Sulbactam (Sodium 3 gm/ Sodium Chloride) 100 mls @ 100 mls/ hr IVPB Q6H [facility] Last Admin: 11/08/16 06:22 Dose: 100 mls/hr Lactated Ringer's (Lactated Ringer's) 1,000 mls @ 100 mls/hr IV .Q10H [facility] Stop: 11/09/16 09:01 Last Admin: 11/08/16 06:24 Dose: 100 mls/hr Ondansetron HCl (Zofran Inj) 4 mg IVP Q6 PRN PRN Reason: Nausea/Vomiting Tramadol HCl (Ultram) 50 mg PO Q6 PRN PRN Reason: Pain, Mild (1-3) Last Admin: 11/05/16 15:40 Dose: 50 mg - Labs Labs: 11/08/16 06:35 11/08/16 06:35 PT 13.4 Seconds (9.8-13.1) H 11/08/16 07:10 INR 1.3 (0.9-1.2) H 11/08/16 07:10 APTT 28.2 Seconds (25.6-37.1) 11/08/16 07:10 Attending/Attestation - Attestation I have personally seen and examined this patient.: Yes I have fully participated in the care of the patient.: Yes I have reviewed all pertinent clinical information, including history, physical exam and plan: Yes Notes (Text): 11/08/16 11:[address] sonia kay, agree with findings and plan as above
[2016-11-08] MEDS ORDERED: Propofol 10 mg/ml Inj (20 ML) ONE (11:28)
[2016-11-08] MEDS ORDERED: Succinylcholine 200 mg/10 ml Inj IV ONE (11:28)
[2016-11-08] MEDS ORDERED: Midazolam 2 MG/2 ML VIAL ONE (11:28)
[2016-11-08] MEDS ORDERED: Lidocaine 4% (Laryng-O-Jet) Kit MM ONE (11:29)
[2016-11-08] MEDS ORDERED: Lidocaine Hydrochloride 5 ML INJ ONE (11:29)
[2016-11-08] MEDS ORDERED: Sevoflurane - Inhalation Anesthetic Liq (250 ml) ONE (11:33)
[2016-11-08] MEDS ORDERED: Bupivacaine 0.5% Inj(30mL) ONE (12:23)
[2016-11-08] MEDS ORDERED: Lidocaine 1% Inj (20ml) ONE (12:23)
[2016-11-08] MEDS ORDERED: Bacitracin Ointment 30 GM TUBE ONE (12:24)
[2016-11-08] MEDS ORDERED: Lactated Ringer's 1,000 ML IV ONE ×4 (12:56→15:00)
[2016-11-08] MEDS ORDERED: Ampicillin/Sulbactam 3 gm Inj IVPB ONE (13:10)
[2016-11-08] MEDS ORDERED: Sodium Chloride 0.9% 1,000 ML IV ONE (14:45)
[2016-11-08] MEDS ORDERED: HYDROmorphone 0.5 mg/0.5 ml ISec ONE (16:58)
[2016-11-08] MEDS: HYDROmorphone 0.5 mg/0.5 ml ISec IVP PRN ×3 (17:00→19:59)
[2016-11-08] MEDS ORDERED: Lactated Ringer's 1,000 ML IV SCH (17:00)
--- NOTE | 2016-11-08 17:09 | PCM.SURG1 ---
Surgeon's Initial Post Op Note - Surgeon's Notes Surgeon: Dr. Chavez Administrative Analyst: Dr. Adhikari, Dr. Saab PGY3, Dr. Robins PGY2, Dr. Moreau PGY1 Type of Anesthesia: General Endo Anesthesia Administered By: Dr. Biswas Pre-Operative Diagnosis: bilateral buttock, back, and hip fat necrosis Operative Findings: fat necrosis Post-Operative Diagnosis: same Operation Performed: stage 3 debridement of bilateral buttock and hips with advancement flap multi-layer closure, placement of Prevena wound vac dressing Specimen/Specimens Removed: fat necrosis from bilateral buttock and hips Estimated Blood Loss: EBL {In ML}: 300 Blood Products Given: PRBC Drains Used: Ismael Almonte (3), Quinten (2) Post-Op Condition: Good Date of Surgery/Procedure: 11/08/16 Time of Surgery/Procedure: 17:10
[2016-11-08] MEDS ORDERED: HYDROmorphone 0.5 mg/0.5 ml ISec IVP PRN (19:47)
[2016-11-09] MEDS: Ampicillin/Sulbactam 3 GM in Sodium Chloride 0.9% 100 ML IVPB SCH ×4 (01:05→20:00)
[2016-11-09] MEDS ORDERED: Lactated Ringer's 1,000 ML IV SCH ×2 (01:45)
[2016-11-09] MEDS ORDERED: HYDROmorphone 0.5 mg/0.5 ml ISec IVP ONE (03:05)
[2016-11-09] MEDS: HYDROmorphone 0.5 mg/0.5 ml ISec IVP PRN ×2 (07:13→14:39)
[2016-11-09 07:38] LABS: BASO % 0.3 % (0.0-2.0); EOS # 0.2 K/uL (0.0-0.7); EOS % 1.8 % (0.0-4.0); LYMPH # 0.9 K/uL (1.0-4.3); LYMPH % 6.5 % (20.0-40.0); MEAN CELL VOLUME 91.6 fl (81.0-99.0); MEAN CORPUSCULAR HEMOGLOBIN 30.4 pg (27.0-31.0); MEAN CORPUSCULAR HGB CONC 33.2 g/dL (33.0-37.0); MEAN PLATELET VOLUME 8.5 fl (7.2-11.7); MONO # 2.4 K/uL (0.0-0.8); MONO % 17.2 % (0.0-10.0); NEUT # 10.1 K/uL (1.8-7.0); NEUT % 74.2 % (50.0-75.0); PLATELET COUNT 148 K/uL (130-400); RED CELL DISTRIBUTION WIDTH 14.8 % (11.5-14.5); WHITE BLOOD COUNT 13.7 K/uL (4.8-10.8)
[2016-11-09 07:45] LABS: BLOOD UREA NITROGEN 5 mg/dl (7-17); GFR AFRICAN-AMERICAN > 60; GLUCOSE,RANDOM 133 mg/dL (65-105); SODIUM 135 mmol/l (132-148)
[2016-11-09 07:46] LABS: CALCIUM 7.6 mg/dL (8.4-10.2); CARBON DIOXIDE 28 mmol/L (22-30); CHLORIDE 99 mmol/L (98-107); POTASSIUM 3.8 MMOL/L (3.6-5.0)
--- NOTE | 2016-11-09 08:30 | CP.PCM.PN ---
<Sonia Kay - Last Filed: 11/09/16 10:49> Subjective - Date & Time of Evaluation Date of Evaluation: 11/09/16 Time of Evaluation: 07:20 - Subjective Subjective: S/p third stage b/l buttock/hip debridment on 11/08. Pt seen and examined this morning at bedside. pt is awake, alert and afebrile, c/o pain at surgical site but gets better with pain medications. pt tolerating diet, voiding freely, no BM. denies n/v, chills, dyspnea or chest/abdo pain. Serosanguinous drainage noted b/l. Objective - Vital Signs/Intake and Output Vital Signs (last 24 hours): Temp Pulse Resp BP Pulse Ox 99.4 F 105 H 20 94/59 L 97 11/09/16 08:01 11/09/16 08:01 11/09/16 08:01 11/09/16 08:01 11/09/16 08:01 - Medications Medications: Current Medications Benzocaine/Menthol (Cepacol Sore Throat) 1 clara PO Q2 PRN PRN Reason: Sore Throat Last Admin: 11/04/16 21:53 Dose: 1 clara Docusate Sodium (Colace) 100 mg PO BID [facility] Last Admin: 11/08/16 17:00 Dose: Not Given Ferrous Sulfate (Feosol) 325 mg PO BID [facility] Last Admin: 11/08/16 17:00 Dose: Not Given Heparin Sodium (Porcine) (Heparin) 5,000 units SC Q12 [facility] PRN Reason: Protocol Last Admin: 11/08/16 21:03 Dose: 5,000 units Hydromorphone HCl (Dilaudid) 0.5 mg IVP Q3 PRN PRN Reason: Pain, moderate (4-7) Last Admin: 11/09/16 07:13 Dose: 0.5 mg Hydromorphone HCl (Dilaudid) 1 mg IVP Q4 PRN PRN Reason: Pain, severe (8-10) Last Admin: 11/09/16 01:08 Dose: 1 mg Ampicillin Sodium/Sulbactam (Sodium 3 gm/ Sodium Chloride) 100 mls @ 100 mls/ hr IVPB 0200,0800,1400,2000 [facility] Last Admin: 11/09/16 01:05 Dose: 100 mls/hr Lactated Ringer's (Lactated Ringer's 500ml) 1,000 mls @ 100 mls/hr IV .Q10H [facility] Stop: 11/09/16 09:01 Last Admin: 11/09/16 02:37 Dose: Not Given Lactated Ringer's (Lactated Ringer's 500ml) 1,000 mls @ 100 mls/hr IV .Q10H [facility] Last Admin: 11/09/16 07:15 Dose: 100 mls/hr Ondansetron HCl (Zofran Inj) 4 mg IVP Q6 PRN PRN Reason: Nausea/Vomiting Tramadol HCl (Ultram) 50 mg PO Q6 PRN PRN Reason: Pain, Mild (1-3) Last Admin: 11/09/16 05:50 Dose: 50 mg - Labs Labs: 11/09/16 06:45 11/09/16 06:45 PT 13.4 Seconds (9.8-13.1) H 11/08/16 07:10 INR 1.3 (0.9-1.2) H 11/08/16 07:10 APTT 28.2 Seconds (25.6-37.1) 11/08/16 07:10 - Constitutional Appears: No Acute Distress - Head Exam Head Exam: ATRAUMATIC - Eye Exam Eye Exam: EOMI, Normal appearance, PERRL Pupil Exam: NORMAL ACCOMODATION - ENT Exam ENT Exam: Mucous Membranes Moist - Neck Exam Neck Exam: Normal Inspection - Respiratory Exam Respiratory Exam: Clear to Ausculation Bilateral, NORMAL BREATHING PATTERN - Cardiovascular Exam Cardiovascular Exam: REGULAR RHYTHM - GI/Abdominal Exam GI & Abdominal Exam: Soft, Hypoactive Bowel Sounds - Extremities Exam Extremities Exam: Normal Capillary Refill, Normal Inspection. absent: Pedal Edema, Tenderness - Back Exam Back Exam: absent: CVA tenderness (L), CVA tenderness (R) - Neurological Exam Neurological Exam: Alert, Awake, Oriented x3 Neuro motor strength exam: Left Upper Extremity: 5, Right Upper Extremity: 5, Left Lower Extremity: 5, Right Lower Extremity: 5 - Psychiatric Exam Psychiatric exam: Normal Affect - Skin Skin Exam: Dry, Intact, Normal Color, Warm - Additional Findings Additional findings: right 3 KAVON drains and left 2 minesh drains and right wound vac noted. Assessment and Plan - Assessment and Plan (Free Text) Assessment: A/P: 36 y/o F s/p third stage bilatearl buttock and back debridement for necrotic soft tissue on 11/03, 11/06 and 11/08. sanguineous drainage b/l. B/L Buttock Cellulitis/ possible soft tissue necrosis -MRI of pelvis and L-spine w/o contrast was done showed cystic foci and possible fibrosis & cellulitis, no disk herniation -History of bilateral buttock injections -Plastic surgery consulted and rec' appreciated -s/p lower back debridment on 11/03, 11/06 and 11/08 -Continue IV Unasyn and pain management -will follow Surgery recommendations Coagulopathy -PT/INR: 13.4/1.3 on 11/08 -unclear etiology Acute blood loss anemia -s/p PRBc transfusion, 6 U since admission -H/H: 8.3/25.0 today, will monitor -ferrous sulfate and colace Leukocytosis -WBC: 13.7, will monitor -Continue unasyn IV DVT ppx - SCD - Ambulation Preventive Screening -HIV nonreactive -Hep B antigen, Hep C Ab negative <Cami Rai - Last Filed: 11/09/16 15:47> Objective - Vital Signs/Intake and Output Vital Signs (last 24 hours): Temp Pulse Resp BP Pulse Ox 99.2 F 101 H 18 94/56 L 100 11/09/16 13:00 11/09/16 13:00 11/09/16 13:00 11/09/16 13:00 11/09/16 13:00 - Medications Medications: Current Medications Benzocaine/Menthol (Cepacol Sore Throat) 1 calra PO Q2 PRN PRN Reason: Sore Throat Last Admin: 11/04/16 21:53 Dose: 1 clara Docusate Sodium (Colace) 100 mg PO BID [facility] Last Admin: 11/09/16 08:52 Dose: 100 mg Ferrous Sulfate (Feosol) 325 mg PO BID [facility] Last Admin: 11/09/16 08:53 Dose: 325 mg Heparin Sodium (Porcine) (Heparin) 5,000 units SC Q12 [facility] PRN Reason: Protocol Last Admin: 11/09/16 08:51 Dose: 5,000 units Hydromorphone HCl (Dilaudid) 0.5 mg IVP Q3 PRN PRN Reason: Pain, severe (8-10) Last Admin: 11/09/16 14:39 Dose: 0.5 mg Ampicillin Sodium/Sulbactam (Sodium 3 gm/ Sodium Chloride) 100 mls @ 100 mls/ hr IVPB 0200,0800,1400,2000 [facility] Last Admin: 11/09/16 13:02 Dose: 100 mls/hr Ondansetron HCl (Zofran Inj) 4 mg IVP Q6 PRN PRN Reason: Nausea/Vomiting Oxycodone/Acetaminophen (Percocet 5/325 Mg Tab) 1 tab PO Q4 PRN PRN Reason: Pain, moderate (4-7) Stop: 11/12/16 11:42 Phenol/Menthol (Phenaseptic 1.4% Throat [place]) 1 spry MT Q2 PRN PRN Reason: Sore Throat Tramadol HCl (Ultram) 50 mg PO Q6 PRN PRN Reason: Pain, Mild (1-3) Last Admin: 11/09/16 05:50 Dose: 50 mg - Labs Labs: 11/09/16 06:45 11/09/16 06:45 PT 13.4 Seconds (9.8-13.1) H 11/08/16 07:10 INR 1.3 (0.9-1.2) H 11/08/16 07:10 APTT 28.2 Seconds (25.6-37.1) 11/08/16 07:10 Attending/Attestation - Attestation I have personally seen and examined this patient.: Yes I have fully participated in the care of the patient.: Yes I have reviewed all pertinent clinical information, including history, physical exam and plan: Yes Notes (Text): 11/09/16 15:47 agree [facility] findings and plan as above. seen with resident and discussed, dr. sonia kay
[2016-11-09 08:42] LABS: BASOPHIL 1 % (0-2); EOSINOPHIL 3 % (0-7); NEUTROPHIL 80 % (42-75); TOTAL CELLS COUNTED 100
[2016-11-09 08:43] LABS: LARGE PLATELETS PRESENT
[2016-11-09] MEDS ORDERED: Oxycodone/Acetaminophen 5/325 mg Tab PO PRN (11:41)
[2016-11-09] MEDS ORDERED: Phenol 1.4% Throat Spray MT PRN (11:46)
--- NOTE | 2016-11-09 11:46 | CP.PCM.PN ---
Subjective - Date & Time of Evaluation Date of Evaluation: 11/09/16 Time of Evaluation: 11:46 - Subjective Subjective: Surgery: Dr. Chavez Patient doing well today. Some pain controlled with medication. Denies n/v/f/c. She states she has not gotten out of bed yet today. She is tolerating diet. Objective - Vital Signs/Intake and Output Vital Signs (last 24 hours): Temp Pulse Resp BP Pulse Ox 99.4 F 105 H 20 94/59 L 97 11/09/16 08:01 11/09/16 08:01 11/09/16 08:01 11/09/16 08:01 11/09/16 08:01 - Medications Medications: Current Medications Benzocaine/Menthol (Cepacol Sore Throat) 1 clara PO Q2 PRN PRN Reason: Sore Throat Last Admin: 11/04/16 21:53 Dose: 1 clara Docusate Sodium (Colace) 100 mg PO BID [facility] Last Admin: 11/09/16 08:52 Dose: 100 mg Ferrous Sulfate (Feosol) 325 mg PO BID [facility] Last Admin: 11/09/16 08:53 Dose: 325 mg Heparin Sodium (Porcine) (Heparin) 5,000 units SC Q12 [facility] PRN Reason: Protocol Last Admin: 11/09/16 08:51 Dose: 5,000 units Hydromorphone HCl (Dilaudid) 0.5 mg IVP Q3 PRN PRN Reason: Pain, severe (8-10) Ampicillin Sodium/Sulbactam (Sodium 3 gm/ Sodium Chloride) 100 mls @ 100 mls/ hr IVPB 0200,0800,1400,2000 [facility] Last Admin: 11/09/16 08:53 Dose: 100 mls/hr Ondansetron HCl (Zofran Inj) 4 mg IVP Q6 PRN PRN Reason: Nausea/Vomiting Oxycodone/Acetaminophen (Percocet 5/325 Mg Tab) 1 tab PO Q4 PRN PRN Reason: Pain, moderate (4-7) Stop: 11/12/16 11:42 Tramadol HCl (Ultram) 50 mg PO Q6 PRN PRN Reason: Pain, Mild (1-3) Last Admin: 11/09/16 05:50 Dose: 50 mg - Labs Labs: 11/09/16 06:45 11/09/16 06:45 PT 13.4 Seconds (9.8-13.1) H 11/08/16 07:10 INR 1.3 (0.9-1.2) H 11/08/16 07:10 APTT 28.2 Seconds (25.6-37.1) 11/08/16 07:10 - Constitutional Appears: Non-toxic, No Acute Distress - Head Exam Head Exam: ATRAUMATIC, NORMOCEPHALIC - Eye Exam Eye Exam: EOMI, Normal appearance - ENT Exam ENT Exam: Mucous Membranes Moist - Respiratory Exam Respiratory Exam: NORMAL BREATHING PATTERN. absent: Respiratory Distress - Cardiovascular Exam Cardiovascular Exam: REGULAR RHYTHM. absent: Tachycardia - GI/Abdominal Exam GI & Abdominal Exam: Soft. absent: Distended, Tenderness - Back Exam Additional comments: Pervena wound vac in place. 5x drains in place, 3 on right 2 on the left with SA output. - Neurological Exam Neurological Exam: Alert, Awake - Psychiatric Exam Psychiatric exam: Normal Affect, Normal Mood - Skin Skin Exam: Dry, Normal Color, Warm Assessment and Plan - Assessment and Plan (Free Text) Assessment: 36 y/o female s/p 3rd stage bilateral buttock, hip, and back fat necrosis debridement w/ flap advancement wound closure and Pervena wound vac placement POD1 Plan: -Patient must ambulate 3x/day -patient only allowed to be on backside for 4 hours/24 hours limiting to 2 hour intervals maximum -no sitting -monitor drain output -reg diet -cont Unasyn -am labs -Heparing DVT prophylaxis -IS use -wound vac to remain on suction at all times -possible eligible for d/c Sunday pending clinical picture -d/w Dr. Scott Guzman PGY3
[2016-11-10] MEDS: HYDROmorphone 0.5 mg/0.5 ml ISec IVP PRN (00:01)
[2016-11-10] MEDS: Ampicillin/Sulbactam 3 GM in Sodium Chloride 0.9% 100 ML IVPB SCH ×3 (01:35→13:39)
[2016-11-10 06:19] LABS: BASO % 0.4 % (0.0-2.0); EOS # 0.2 K/uL (0.0-0.7); EOS % 1.9 % (0.0-4.0); HEMATOCRIT 24.1 % (34.0-47.0); LYMPH % 7.9 % (20.0-40.0); MEAN CELL VOLUME 92.6 fl (81.0-99.0); MEAN CORPUSCULAR HEMOGLOBIN 31.1 pg (27.0-31.0); MEAN CORPUSCULAR HGB CONC 33.6 g/dL (33.0-37.0); MEAN PLATELET VOLUME 8.4 fl (7.2-11.7); MONO # 2.1 K/uL (0.0-0.8); MONO % 17.1 % (0.0-10.0); NEUT % 72.7 % (50.0-75.0); RED CELL DISTRIBUTION WIDTH 14.8 % (11.5-14.5); WHITE BLOOD COUNT 12.4 K/uL (4.8-10.8)
[2016-11-10] MEDS ORDERED: Oxycodone/Acetaminophen 5/325 mg Tab PO PRN (08:42)
--- NOTE | 2016-11-10 08:56 | CP.PCM.PN ---
Subjective - Date & Time of Evaluation Date of Evaluation: 11/10/16 Time of Evaluation: 08:53 - Subjective Subjective: Patient doing well today. She has been compliant with the restrictions of laying on her back. She has been OOB ambulating. Pain controlled. Drain output serous. Per nursing report no acute events overnight. Objective - Vital Signs/Intake and Output Vital Signs (last 24 hours): Temp Pulse Resp BP Pulse Ox 98.3 F 53 L 20 99/58 L 94 L 11/10/16 08:22 11/10/16 08:22 11/10/16 08:22 11/10/16 08:22 11/10/16 08:22 - Medications Medications: Current Medications Benzocaine/Menthol (Cepacol Sore Throat) 1 clara PO Q2 PRN PRN Reason: Sore Throat Last Admin: 11/04/16 21:53 Dose: 1 clara Docusate Sodium (Colace) 100 mg PO BID [facility] Last Admin: 11/10/16 08:28 Dose: 100 mg Ferrous Sulfate (Feosol) 325 mg PO BID [facility] Last Admin: 11/10/16 08:28 Dose: 325 mg Heparin Sodium (Porcine) (Heparin) 5,000 units SC Q12 JAMIR PRN Reason: Protocol Last Admin: 11/10/16 08:29 Dose: 5,000 units Ampicillin Sodium/Sulbactam (Sodium 3 gm/ Sodium Chloride) 100 mls @ 100 mls/ hr IVPB 0200,0800,1400,2000 [facility] Last Admin: 11/10/16 08:28 Dose: 100 mls/hr Ondansetron HCl (Zofran Inj) 4 mg IVP Q6 PRN PRN Reason: Nausea/Vomiting Oxycodone/Acetaminophen (Percocet 5/325 Mg Tab) 1 tab PO Q4 PRN PRN Reason: Pain, moderate (4-7) Stop: 11/12/16 11:42 Last Admin: 11/09/16 18:11 Dose: 1 tab Oxycodone/Acetaminophen (Percocet 5/325 Mg Tab) 2 tab PO Q4 PRN PRN Reason: Pain, severe (8-10) Stop: 11/13/16 08:43 Phenol/Menthol (Phenaseptic 1.4% Throat [place]) 1 spry MT Q2 PRN PRN Reason: Sore Throat Tramadol HCl (Ultram) 50 mg PO Q6 PRN PRN Reason: Pain, Mild (1-3) Last Admin: 11/10/16 07:46 Dose: 50 mg - Labs Labs: 11/10/16 05:40 11/09/16 06:45 PT 13.4 Seconds (9.8-13.1) H 11/08/16 07:10 INR 1.3 (0.9-1.2) H 11/08/16 07:10 APTT 28.2 Seconds (25.6-37.1) 11/08/16 07:10 - Constitutional Appears: Non-toxic, No Acute Distress - Head Exam Head Exam: ATRAUMATIC, NORMOCEPHALIC - Eye Exam Eye Exam: EOMI, Normal appearance - ENT Exam ENT Exam: Mucous Membranes Moist - Respiratory Exam Respiratory Exam: NORMAL BREATHING PATTERN. absent: Respiratory Distress - Cardiovascular Exam Cardiovascular Exam: REGULAR RHYTHM. absent: Tachycardia - Extremities Exam Extremities Exam: Normal Inspection. absent: Calf Tenderness - Back Exam Additional comments: wound vac with good seal - Neurological Exam Neurological Exam: Alert, Awake - Psychiatric Exam Psychiatric exam: Normal Affect, Normal Mood - Skin Skin Exam: Dry, Warm Assessment and Plan - Assessment and Plan (Free Text) Assessment: 36 y/o female s/p 3rd stage bilateral buttock, hip, and back fat necrosis debridement w/ flap advancement wound closure and Pervena wound vac placement POD2 Plan: -Patient must ambulate 3x/day -patient only allowed to be on backside for 4 hours/24 hours limiting to 2 hour intervals maximum -no sitting -monitor drain output -reg diet -d/c on cipro for 2 weeks as well as percocet for pain -IS use -wound vac to remain on suction at all times, apply home wound vac prior to d/c today -d/w Dr. Scott Guzman PGY3
--- NOTE | 2016-11-10 09:28 | CP.PCM.DIS ---
<Zane Simons - Last Filed: 11/10/16 15:01> Provider - Provider Date of Admission: 10/29/16 22:59 Attending physician: Juan Alberto Jaime Primary care physician: Mayda Diana Consults: Plastic Surgery, Dr. Chavez Time Spent in preparation of Discharge (in minutes): 30 Diagnosis - Discharge Diagnosis (1) Cellulitis and abscess of buttock Status: Acute Comment: B/L soft tissue necrosis and cellulitis (2) Acute blood loss as cause of postoperative anemia Status: Acute (3) Coagulopathy Status: Acute Hospital Course - Lab Results Lab Results: Micro Results 10/29/16 23:25 Blood-Venous Blood Culture - Final NO GROWTH AFTER 5 DAYS 10/29/16 23:25 Blood-Venous Gram Stain - Final TEST NOT PERFORMED 10/29/16 23:20 Blood-Venous Blood Culture - Final NO GROWTH AFTER 5 DAYS 10/29/16 23:20 Blood-Venous Gram Stain - Final TEST NOT PERFORMED Most Recent Lab Values WBC 12.4 K/uL (4.8-10.8) H 11/10/16 05:40 RBC 2.61 Mil/uL (3.80-5.20) L 11/10/16 05:40 Hgb 8.1 g/dL (12.0-16.0) L 11/10/16 05:40 Hct 24.1 % (34.0-47.0) L 11/10/16 05:40 MCV 92.6 fl (81.0-99.0) 11/10/16 05:40 MCH 31.1 pg (27.0-31.0) H 11/10/16 05:40 MCHC 33.6 g/dL (33.0-37.0) 11/10/16 05:40 RDW 14.8 % (11.5-14.5) H 11/10/16 05:40 Plt Count 174 K/uL (130-400) 11/10/16 05:40 MPV 8.4 fl (7.2-11.7) 11/10/16 05:40 Neut % (Auto) 72.7 % (50.0-75.0) 11/10/16 05:40 Lymph % (Auto) 7.9 % (20.0-40.0) L 11/10/16 05:40 [place] % (Auto) 17.1 % (0.0-10.0) H 11/10/16 05:40 Eos % (Auto) 1.9 % (0.0-4.0) 11/10/16 05:40 Baso % (Auto) 0.4 % (0.0-2.0) 11/10/16 05:40 Neut # 9.0 K/uL (1.8-7.0) H 11/10/16 05:40 Lymph # 1.0 K/uL (1.0-4.3) 11/10/16 05:40 [place] # 2.1 K/uL (0.0-0.8) H 11/10/16 05:40 Eos # 0.2 K/uL (0.0-0.7) 11/10/16 05:40 Baso # 0.0 K/uL (0.0-0.2) 11/10/16 05:40 Neutrophils % (Manual) 80 % (42-75) H 11/09/16 06:45 Band Neutrophils % 1 % (0-2) 11/09/16 06:45 Lymphocytes % (Manual) 5 % (20-50) L 11/09/16 06:45 Monocytes % (Manual) 10 % (0-10) 11/09/16 06:45 Eosinophils % (Manual) 3 % (0-7) 11/09/16 06:45 Basophils % (Manual) 1 % (0-2) 11/09/16 06:45 Platelet Estimate Normal (NORMAL) 11/09/16 06:45 Large Platelets Present 11/09/16 06:45 Hypochromasia (manual) Slight 11/09/16 06:45 Poikilocytosis (manual Slight 11/04/16 07:30 Anisocytosis (manual) Slight 11/09/16 06:45 Ovalocytes Slight 11/04/16 07:30 Schistocytes Slight 11/04/16 07:30 ESR 10 mm/hr (0-20) 10/31/16 15:04 PT 13.4 Seconds (9.8-13.1) H 11/08/16 07:10 INR 1.3 (0.9-1.2) H 11/08/16 07:10 APTT 28.2 Seconds (25.6-37.1) 11/08/16 07:10 Sodium 135 mmol/l (132-148) 11/09/16 06:45 Potassium 3.8 MMOL/L (3.6-5.0) 11/09/16 06:45 Chloride 99 mmol/L (98-107) 11/09/16 06:45 Carbon Dioxide 28 mmol/L (22-30) 11/09/16 06:45 Anion Gap 11 (10-20) 11/09/16 06:45 BUN 5 mg/dl (7-17) L 11/09/16 06:45 Creatinine 0.8 mg/dL (0.7-1.2) 11/09/16 06:45 Est GFR ( Amer) > 60 11/09/16 06:45 Est GFR (Non-Af Amer) > 60 11/09/16 06:45 Random Glucose 133 mg/dL (65-105) H 11/09/16 06:45 Calcium 7.6 mg/dL (8.4-10.2) L 11/09/16 06:45 Total Bilirubin 0.3 mg/dl (0.2-1.3) 11/02/16 05:00 AST 35 U/L (14-36) 11/02/16 05:00 ALT 27 U/L (9-52) 11/02/16 05:00 Alkaline Phosphatase 42 U/L (38-126) 11/02/16 05:00 C-React Prot High Sens 0.18 mg/L (1.00-3.00) L 10/31/16 15:04 Total Protein 5.5 G/DL (6.3-8.2) L 11/02/16 05:00 Total Protein (PEP) 6.5 g/dL (6.1-8.1) 10/31/16 15:04 Albumin 3.1 g/dL (3.5-5.0) L D 11/02/16 05:00 Albumin (PEP) 3.9 g/dL (3.8-4.8) 10/31/16 15:04 Globulin 2.4 gm/dL (2.2-3.9) 11/02/16 05:00 Albumin/Globulin Ratio 1.3 (1.0-2.1) 11/02/16 05:00 Gzemu-9-Jrymyjyoh 0.2 g/dL (0.2-0.3) 10/31/16 15:04 Zypxm-2-Lcndyfbsv 0.6 g/dL (0.5-0.9) 10/31/16 15:04 Rqaz-2-Yilxyicz 0.5 g/dL (0.4-0.6) 10/31/16 15:04 Rmdw-7-Ssuvdwqp 0.3 g/dL (0.2-0.5) 10/31/16 15:04 Gamma Globulins 1.1 g/dL (0.8-1.7) 10/31/16 15:04 Abnorm Protein Band 1 TEST NOT PERFORMED 10/31/16 15:04 Abnorm Protein Band 2 TEST NOT PERFORMED 10/31/16 15:04 Abnorm Protein Band 3 TEST NOT PERFORMED 10/31/16 15:04 Angiotensin Convert Enz 165 U/L (9-67) H 10/31/16 15:04 Urine Color Yellow (YELLOW) 10/29/16 23:26 Urine Clarity Slighty-cloudy (Clear) 10/29/16 23:26 Urine pH 6.0 (5.0-8.0) 10/29/16 23:26 Ur Specific [place] 1.026 (1.003-1.030) 10/29/16 23:26 Urine Protein Negative mg/dL (NEGATIVE) 10/29/16 23:26 Urine Glucose (UA) Neg mg/dL (Normal) 10/29/16 23:26 Urine Ketones Negative mg/dL (NEGATIVE) 10/29/16 23:26 Urine Blood Negative (NEGATIVE) 10/29/16 23:26 Urine Nitrate Negative (NEGATIVE) 10/29/16 23:26 Urine Bilirubin Negative (NEGATIVE) 10/29/16 23:26 Urine Urobilinogen 2.0 mg/dL (0.2-1.0) H 10/29/16 23:26 Ur Leukocyte Esterase Neg Ken/uL (Negative) 10/29/16 23:26 Urine RBC (Auto) 2 /hpf (0-3) 10/29/16 23:26 Urine Microscopic WBC 2 /hpf (0-5) 10/29/16 23:26 Ur Squamous Epith Cells 6 /hpf (0-5) H 10/29/16 23:26 IgG 992.5 mg/dL (700.0-1600.0) 10/31/16 15:04 IgA 204.2 mg/dL (70.0-400.0) 10/31/16 15:04 IgM 73.4 mg/dL (40.0-230.0) 10/31/16 15:04 RYLAN & SPEP Interp See note 10/31/16 15:04 Serum Immunofixation Not detected (Not Detected) 10/31/16 15:04 Rheumatoid Factor TNP 10/31/16 15:04 FLAVIA Screen TNP 10/31/16 15:04 FLAVIA Titer TNP 10/31/16 15:04 FLAVIA Pattern TNP 10/31/16 15:04 SS-A Antibody TNP 10/31/16 15:04 SS-B Ab Interp Negative (Negative) 10/31/16 15:04 SS-B Antibody TNP 10/31/16 15:04 SS-B Ab Interp Negative (Negative) 10/31/16 15:04 Sm (Hoover) Antibody TNP 10/31/16 15:04 SM/HUMAN [employer]OURCES ASSOCIATE Antibody TNP 10/31/16 15:04 Scl-70 Antibody TNP 10/31/16 15:04 Anti-ds DNA Titer (Crith) TNP 10/31/16 15:04 Anti-ds DNA (Crithidia) TNP 10/31/16 15:04 Ribosomal P Prot Ab TNP 10/31/16 15:04 Anti-Mitochondrial Titr TNP 10/31/16 15:04 Anti-Mitochondrial Ab TNP 10/31/16 15:04 Actin IgG Antibody TNP 10/31/16 15:04 Striated Muscle Ab TNP 10/31/16 15:04 Myocardial Ab Titer TNP 10/31/16 15:04 Anti-Myocardial Ab TNP 10/31/16 15:04 Reticulin Ab Titer TNP 10/31/16 15:04 Reticulin IgA Antibody TNP 10/31/16 15:04 Thyroperoxidase Ab TNP 10/31/16 15:04 Anti-Parietal Cell Ab TNP 10/31/16 15:04 Complement C3 TNP 10/31/16 15:04 Complement C4 TNP 10/31/16 15:04 Tot Complement (CH50) 54 U/mL (31-60) 10/31/16 15:04 Absolute Lymphs (Flow) 1503 Cells/mcL (850-3900) 10/31/16 15:34 % CD4 Cells 39 Percent (30-61) 10/31/16 15:34 Absolute CD4 Count 584 Cells/mcL (490-1740) 10/31/16 15:34 T-Help/Suppress Ratio 2.58 Ratio (0.86-5.00) 10/31/16 15:34 % CD8 Cells 15 Percent (12-42) 10/31/16 15:34 Absolute CD8 Count 226 Cells/mcL (180-1170) 10/31/16 15:34 Hepatitis A IgM Ab Negative (NEGATIVE) 11/03/16 19:09 Hep Bs Antigen Negative (NEGATIVE) 11/03/16 19:09 Hep B Core IgM Ab Negative (NEGATIVE) 11/03/16 19:09 Hepatitis C Antibody Negative (NEGATIVE) 11/03/16 19:09 HIV-1 Ab Rapid Screen Non reactive (NON REAC) 11/03/16 19:09 Blood Type B POSITIVE 11/08/16 06:35 Blood Type Confirm B POSITIVE 11/01/16 11:45 Antibody Screen Negative 11/08/16 06:35 Crossmatch See Detail 11/08/16 06:35 BBK History Checked Patient has bt 11/08/16 06:35 - Hospital Course Hospital Course: 36 years old female with PMH of bilateral buttock injections comes with 5-6 days of sharp left buttock pain radiating to the lower back, increases with sitting and turning of the trunk and associated with fever and generalized weakness for last 2 days. MRI of pelvis and L-spine w/o contrast was done showed cystic foci and possible fibrosis & cellulitis, no disk herniation. Patient was started on Unasyn 3g IVPD Q6H and pain management, Plastic surgery consulted. Today, patient is s/p third stage bilateral buttock and back debridement for necrotic soft tissue on 11/03, 11/06 and 11/08, s/p 6 U transfusion and wound vac/drain b/l. Patient is HD stable, afebrile, voiding freely and tolerating reg diet. Patient will be d/c home on Cipro for 2 weeks, Percocet, Iron, Colace and home wound vac/drain b/l. Patient was instructed to f /u PCP and surgery with in a week. Encouraged ambulation. - Date & Time of H&P Date of H&P: 10/29/16 Time of H&P: 23:29 Discharge Exam - Head Exam Head Exam: ATRAUMATIC, NORMOCEPHALIC - Eye Exam Eye Exam: Normal appearance, PERRL Pupil Exam: NORMAL ACCOMODATION, PERRL - ENT Exam ENT Exam: Mucous Membranes Moist - Neck Exam Neck exam: Normal Inspection - Respiratory Exam Respiratory Exam: NORMAL BREATHING PATTERN, UNREMARKABLE. absent: Chest Wall Tenderness - Cardiovascular Exam Cardiovascular Exam: REGULAR RHYTHM, +S1, +S2 - GI/Abdominal Exam GI & Abdominal Exam: Hypoactive Bowel Sounds, Soft. absent: Distended, Tenderness - Extremities Exam Extremities exam: normal capillary refill, normal inspection, pedal pulses present - Back Exam Back exam: absent: CVA tenderness (L), CVA tenderness (R) - Neurological Exam Neurological exam: Alert, CN II-XII Intact, Oriented x3 - Psychiatric Exam Psychiatric exam: Normal Mood - Skin Skin Exam: Dry, Intact, Normal Color, Warm - Additional Findings Additional findings: wound vac with good seal Discharge Plan - Discharge Medications Prescriptions: Ciprofloxacin HCl [Cipro] 500 mg PO BID #30 tablet Docusate [Colace] 100 mg PO BID #30 cap Ferrous Sulfate [Feosol] 325 mg PO BID #60 tab Lactobacillus Acidophilus [Bacid Acidophilus] 1 cap PO BID #30 cap oxyCODONE/Acetaminophen [Percocet 5/325 mg Tab] 1 ea PO Q4 PRN #30 tab PRN Reason: Pain, Moderate (4-7) Tramadol HCl [Ultram] 50 mg PO Q6 PRN #20 tablet PRN Reason: Pain, Mild (1-3) - Follow Up Plan Condition: STABLE Disposition: HOME/ ROUTINE Instructions: Wound Infection (DC), Cellulitis (DC), [place] Drain Care ( DC), Acute Wound Care (DC), Debridement (DC), Negative Pressure Wound Therapy ( DC) Additional Instructions: Patient can only lay on her back for 4 hours total in 24 hour period. Can only lay on back for 2 hours at one time max. Monitor drain output and document amount. Take cipro po for 2 weeks. Follow up with Dr. Chavez next week. Call office for appointment. Referrals: Suni Chavez [Medical Doctor] - <Ute Montano - Last Filed: 11/10/16 15:31> Provider - Provider Date of Admission: 10/29/16 22:59 Attending physician: Juan Alberto Jaime [facility] Course - Lab Results Lab Results: Micro Results 10/29/16 23:25 Blood-Venous Blood Culture - Final NO GROWTH AFTER 5 DAYS 10/29/16 23:25 Blood-Venous Gram Stain - Final TEST NOT PERFORMED 10/29/16 23:20 Blood-Venous Blood Culture - Final NO GROWTH AFTER 5 DAYS 10/29/16 23:20 Blood-Venous Gram Stain - Final TEST NOT PERFORMED Most Recent Lab Values WBC 12.4 K/uL (4.8-10.8) H 11/10/16 05:40 RBC 2.61 Mil/uL (3.80-5.20) L 11/10/16 05:40 Hgb 8.1 g/dL (12.0-16.0) L 11/10/16 05:40 Hct 24.1 % (34.0-47.0) L 11/10/16 05:40 MCV 92.6 fl (81.0-99.0) 11/10/16 05:40 MCH 31.1 pg (27.0-31.0) H 11/10/16 05:40 MCHC 33.6 g/dL (33.0-37.0) 11/10/16 05:40 RDW 14.8 % (11.5-14.5) H 11/10/16 05:40 Plt Count 174 K/uL (130-400) 11/10/16 05:40 MPV 8.4 fl (7.2-11.7) 11/10/16 05:40 Neut % (Auto) 72.7 % (50.0-75.0) 11/10/16 05:40 Lymph % (Auto) 7.9 % (20.0-40.0) L 11/10/16 05:40 [place] % (Auto) 17.1 % (0.0-10.0) H 11/10/16 05:40 Eos % (Auto) 1.9 % (0.0-4.0) 11/10/16 05:40 Baso % (Auto) 0.4 % (0.0-2.0) 11/10/16 05:40 Neut # 9.0 K/uL (1.8-7.0) H 11/10/16 05:40 Lymph # 1.0 K/uL (1.0-4.3) 11/10/16 05:40 [place] # 2.1 K/uL (0.0-0.8) H 11/10/16 05:40 Eos # 0.2 K/uL (0.0-0.7) 11/10/16 05:40 Baso # 0.0 K/uL (0.0-0.2) 11/10/16 05:40 Neutrophils % (Manual) 80 % (42-75) H 11/09/16 06:45 Band Neutrophils % 1 % (0-2) 11/09/16 06:45 Lymphocytes % (Manual) 5 % (20-50) L 11/09/16 06:45 Monocytes % (Manual) 10 % (0-10) 11/09/16 06:45 Eosinophils % (Manual) 3 % (0-7) 11/09/16 06:45 Basophils % (Manual) 1 % (0-2) 11/09/16 06:45 Platelet Estimate Normal (NORMAL) 11/09/16 06:45 Large Platelets Present 11/09/16 06:45 Hypochromasia (manual) Slight 11/09/16 06:45 Poikilocytosis (manual Slight 11/04/16 07:30 Anisocytosis (manual) Slight 11/09/16 06:45 Ovalocytes Slight 11/04/16 07:30 Schistocytes Slight 11/04/16 07:30 ESR 10 mm/hr (0-20) 10/31/16 15:04 PT 13.4 Seconds (9.8-13.1) H 11/08/16 07:10 INR 1.3 (0.9-1.2) H 11/08/16 07:10 APTT 28.2 Seconds (25.6-37.1) 11/08/16 07:10 Sodium 135 mmol/l (132-148) 11/09/16 06:45 Potassium 3.8 MMOL/L (3.6-5.0) 11/09/16 06:45 Chloride 99 mmol/L (98-107) 11/09/16 06:45 Carbon Dioxide 28 mmol/L (22-30) 11/09/16 06:45 Anion Gap 11 (10-20) 11/09/16 06:45 BUN 5 mg/dl (7-17) L 11/09/16 06:45 Creatinine 0.8 mg/dL (0.7-1.2) 11/09/16 06:45 Est GFR ( Amer) > 60 11/09/16 06:45 Est GFR (Non-Af Amer) > 60 11/09/16 06:45 Random Glucose 133 mg/dL (65-105) H 11/09/16 06:45 Calcium 7.6 mg/dL (8.4-10.2) L 11/09/16 06:45 Total Bilirubin 0.3 mg/dl (0.2-1.3) 11/02/16 05:00 AST 35 U/L (14-36) 11/02/16 05:00 ALT 27 U/L (9-52) 11/02/16 05:00 Alkaline Phosphatase 42 U/L (38-126) 11/02/16 05:00 C-React Prot High Sens 0.18 mg/L (1.00-3.00) L 10/31/16 15:04 Total Protein 5.5 G/DL (6.3-8.2) L 11/02/16 05:00 Total Protein (PEP) 6.5 g/dL (6.1-8.1) 10/31/16 15:04 Albumin 3.1 g/dL (3.5-5.0) L D 11/02/16 05:00 Albumin (PEP) 3.9 g/dL (3.8-4.8) 10/31/16 15:04 Globulin 2.4 gm/dL (2.2-3.9) 11/02/16 05:00 Albumin/Globulin Ratio 1.3 (1.0-2.1) 11/02/16 05:00 Vexcs-0-Uyvukqfpx 0.2 g/dL (0.2-0.3) 10/31/16 15:04 Hxhfq-6-Ipwyqxbod 0.6 g/dL (0.5-0.9) 10/31/16 15:04 Xscg-4-Euvrrfuj 0.5 g/dL (0.4-0.6) 10/31/16 15:04 Eikd-6-Djsevprd 0.3 g/dL (0.2-0.5) 10/31/16 15:04 Gamma Globulins 1.1 g/dL (0.8-1.7) 10/31/16 15:04 Abnorm Protein Band 1 TEST NOT PERFORMED 10/31/16 15:04 Abnorm Protein Band 2 TEST NOT PERFORMED 10/31/16 15:04 Abnorm Protein Band 3 TEST NOT PERFORMED 10/31/16 15:04 Angiotensin Convert Enz 165 U/L (9-67) H 10/31/16 15:04 Urine Color Yellow (YELLOW) 10/29/16 23:26 Urine Clarity Slighty-cloudy (Clear) 10/29/16 23:26 Urine pH 6.0 (5.0-8.0) 10/29/16 23:26 Ur Specific [place] 1.026 (1.003-1.030) 10/29/16 23:26 Urine Protein Negative mg/dL (NEGATIVE) 10/29/16 23:26 Urine Glucose (UA) Neg mg/dL (Normal) 10/29/16 23:26 Urine Ketones Negative mg/dL (NEGATIVE) 10/29/16 23:26 Urine Blood Negative (NEGATIVE) 10/29/16 23:26 Urine Nitrate Negative (NEGATIVE) 10/29/16 23:26 Urine Bilirubin Negative (NEGATIVE) 10/29/16 23:26 Urine Urobilinogen 2.0 mg/dL (0.2-1.0) H 10/29/16 23:26 Ur Leukocyte Esterase Neg Ken/uL (Negative) 10/29/16 23:26 Urine RBC (Auto) 2 /hpf (0-3) 10/29/16 23:26 Urine Microscopic WBC 2 /hpf (0-5) 10/29/16 23:26 Ur Squamous Epith Cells 6 /hpf (0-5) H 10/29/16 23:26 IgG 992.5 mg/dL (700.0-1600.0) 10/31/16 15:04 IgA 204.2 mg/dL (70.0-400.0) 10/31/16 15:04 IgM 73.4 mg/dL (40.0-230.0) 10/31/16 15:04 IgE 17 kU/L (<ep=568) 10/31/16 15:04 RYLAN & SPEP Interp See note 10/31/16 15:04 Serum Immunofixation Not detected (Not Detected) 10/31/16 15:04 Rheumatoid Factor TNP 10/31/16 15:04 FLAVIA Screen TNP 10/31/16 15:04 FLAVIA Titer TNP 10/31/16 15:04 FLAVIA Pattern TNP 10/31/16 15:04 SS-A Antibody TNP 10/31/16 15:04 SS-B Ab Interp Negative (Negative) 10/31/16 15:04 SS-B Antibody TNP 10/31/16 15:04 SS-B Ab Interp Negative (Negative) 10/31/16 15:04 Sm ([place]) Antibody TNP 10/31/16 15:04 SM/HUMAN RESOURCES ASSOCIATE Antibody TNP 10/31/16 15:04 Scl-70 Antibody TNP 10/31/16 15:04 Anti-ds DNA Titer (Crith) TNP 10/31/16 15:04 Anti-ds DNA (Crithidia) TNP 10/31/16 15:04 Ribosomal P Prot Ab TNP 10/31/16 15:04 Anti-Mitochondrial Titr TNP 10/31/16 15:04 Anti-Mitochondrial Ab TNP 10/31/16 15:04 Actin IgG Antibody TNP 10/31/16 15:04 Striated Muscle Ab TNP 10/31/16 15:04 Myocardial Ab Titer TNP 10/31/16 15:04 Anti-Myocardial Ab TNP 10/31/16 15:04 Reticulin Ab Titer TNP 10/31/16 15:04 Reticulin IgA Antibody TNP 10/31/16 15:04 Thyroperoxidase Ab TNP 10/31/16 15:04 Anti-Parietal Cell Ab TNP 10/31/16 15:04 Complement C3 TNP 10/31/16 15:04 Complement C4 TNP 10/31/16 15:04 Tot Complement (CH50) 54 U/mL (31-60) 10/31/16 15:04 Absolute Lymphs (Flow) 1503 Cells/mcL (850-3900) 10/31/16 15:34 % CD4 Cells 39 Percent (30-61) 10/31/16 15:34 Absolute CD4 Count 584 Cells/mcL (490-1740) 10/31/16 15:34 T-Help/Suppress Ratio 2.58 Ratio (0.86-5.00) 10/31/16 15:34 % CD8 Cells 15 Percent (12-42) 10/31/16 15:34 Absolute CD8 Count 226 Cells/mcL (180-1170) 10/31/16 15:34 Hepatitis A IgM Ab Negative (NEGATIVE) 11/03/16 19:09 Hep Bs Antigen Negative (NEGATIVE) 11/03/16 19:09 Hep B Core IgM Ab Negative (NEGATIVE) 11/03/16 19:09 Hepatitis C Antibody Negative (NEGATIVE) 11/03/16 19:09 HIV-1 Ab Rapid Screen Non reactive (NON REAC) 11/03/16 19:09 Blood Type B POSITIVE 11/08/16 06:35 Blood Type Confirm B POSITIVE 11/01/16 11:45 Antibody Screen Negative 11/08/16 06:35 Crossmatch See Detail 11/08/16 06:35 BBK History Checked Patient has bt 11/08/16 06:35 Attending/Attestation - Attestation I have personally seen and examined this patient.: Yes I have fully participated in the care of the patient.: Yes I have reviewed all pertinent clinical information, including history, physical exam and plan: Yes
[2016-11-10 16:18] VITALS: BP 100/74; PULSE 62; RESP 18; TEMP 98.5; O2SAT 96
[2016-11-15 23:28] LABS: IGG SUCLASS 4 2.7 mg/dL (4-86)
--- NOTE | 2016-11-20 20:49 | OP ---
PROCEDURE DATE: 11/08/2016 SURGEON: Suni Chavez MD MEDICAL SCREENER SURGEON: Khalif Adhikari MD ANESTHESIA ADMINISTERED BY: Tera Biswas MD TYPE OF ANESTHESIA: General endotracheal tube anesthesia. PREOPERATIVE DIAGNOSES: 1. Open bilateral buttock wound, status post radical debridement and resection of necrotic soft tissue. 2. Bilateral hip, back, and buttock soft tissue necrosis. 3. Chronic cellulitis of bilateral buttocks. POSTOPERATIVE DIAGNOSES: 1. Open bilateral buttock wound, status post radical debridement and resection of necrotic soft tissue. 2. Bilateral hip, back and buttock soft tissue necrosis. 3. Chronic cellulitis of bilateral buttocks. PROCEDURES: 1. Radical resection of 300 cm2 of left hip and buttock necrotic soft tissue mass. 2. Radical resection of 136 cm2 of right hip and buttock necrotic soft tissue mass. 3. Lumbar spine fasciocutaneous advancement flap. 4. Right gluteal fasciocutaneous advancement flap. 5. Left gluteal fasciocutaneous advancement flap. 6. Complex closure of 60 cm open back wound. 7. Prevena incisional wound VAC placement. INDICATION FOR PROCEDURE: This is a 36-year-old female who I previously operated on twice. The patient only reports resolution of preop symptoms. She has been treated with wound VAC therapy as well as with IV antibiotics. Today, the plan was to take the patient back for a third stage further debridement of necrotic soft tissue from buttocks and hips as well as fasciocutaneous advancement flap closure over drains. Risks and benefits of the operation were fully discussed with the patient ,and the previous operation reiterated in the holding area today. The patient agreed to proceed and signed informed consent. All questions were answered. DESCRIPTION OF PROCEDURE: The patient was taken to the operating room in the supine position, placed under general endotracheal tube anesthesia. Perioperative antibiotics were given. SCDs were placed in bilateral lower extremities prior to the induction of anesthesia. She was then placed in a prone position. After appropriate positioning and padding of the arms and the rest of the body, we removed the wound VAC and the area was prepped and draped in the usual clean and sterile manner. Blue towel and Ioban dressings were used to block any bowel flow. We started the operation by exploring for any bleeding. There was nothing significant. We then debrided some more skin. We used the [place] clamps retrieve excess skin. Using #10 scalpel and electrocautery, we cut out the skin and soft tissue. We then further elevated our bilateral inferior base gluteal fasciocutaneous flap 5 cm or more inferiorly with electrocautery with the aid of a lighted retractor and then entered the plane just deep to Narendra's fascia. We used a #10 scalpel and we debrided some more necrotic tissue mass from bilateral buttocks and hips. We also had to remove some of the gluteus kobe and lateral hip muscles that were necrotic with scissor and scalpel technique. There was an additional 136 cm2 of right hip and buttock necrotic soft tissue mass and 300 cm2 of left hip and buttock necrotic soft tissue mass that were resected with electrocautery as well as scissor and scalpel technique. We then went further thinned our flaps of any necrotic and soft tissue material and then we pulse lavaged with 3 L of antibiotic irrigation and ensured hemostasis with electrocautery as well as with 0-Vicryl sutures. There were still some areas of hardness, which the patient knew would exist after the operation which we could not remove from the skin flaps, and otherwise to regress them from necrosing. After debriding the muscle and additional soft tissue and then pulse lavage and getting hemostasis, we tailor-tacked the skin. We encountered the dog-ear, excised more skin, tailor-tacked the skin. We then placed two 19-Omani Quinten drains in the bilateral buttocks and three 10-mm KAVON drains in bilateral buttocks and one underneath the back flap. These were taken out through separate anterolateral stab incisions. After incising the deep fascia and three fasciocutaneous flaps, we performed advancement flap closure of the right and left inferiorly-based gluteal fasciocutaneous flaps and the superiorly-based lumbar fasciocutaneous flap. We used 0-Vicryl sutures, progressive tension suturing technique for closure of the advancement flaps. We then lined up and approximated the Narendra's fascia in interrupted fashion with 0 Vicryl suture. We lined up and approximated deep dermis in an interrupted fashion with 2-0 Vicryl sutures and closed the subcuticular layer with running 3-0 Monocryl suture. We secured the drain with 2-0 silk sutures. After doing this, a nice contour was achieved with good capillary refill to the skin flaps, no excess tension. We then placed the Prevena wound incisional VAC, and set it up to 125 mmHg. The patient was flipped over, extubated and transferred to recovery room in stable condition. FINDINGS: As above. SPECIMENS: Three. 1. Skin from buttocks and back. 2. Left hip necrotic soft tissue mass. 3. Right hip necrotic soft tissue mass. DRAINS: Five. 19-Omani Quinten x2 and 10-mm KAVON x3. ESTIMATED BLOOD LOSS: 300 mL. The patient got 1 unit of packed red blood cells and there was also Prevena incisional VAC. Suni Chavez MD
--- NOTE | 2016-11-20 22:35 | OP ---
DATE OF PROCEDURE: 11/06/2016 PREOPERATIVE DIAGNOSES: 1. Open bilateral buttock and back wounds, status post radical debridement and resection of necrotic soft tissue from buttocks and back. 2. Bilateral buttock, hip, and back soft tissue necrosis. 3. Chronic cellulitis of bilateral buttocks. POSTOPERATIVE DIAGNOSES: 1. Open bilateral buttock and back wounds, status post radical debridement and resection of necrotic soft tissue from buttocks and back. 2. Bilateral buttock, hip, and back soft tissue necrosis. 3. Chronic cellulitis of bilateral buttocks. PROCEDURES PERFORMED: 1. Radical resection of 168 sq cm of left hip necrotic soft tissue mass. 2. Radical resection of 255 sq cm of necrotic right hip soft tissue mass. 3. Debridement of bilateral gluteus kobe necrotic muscles. 4. Re-elevation of right inferiorly based gluteal fasciocutaneous flap. 5. Re-elevation of left gluteal inferiorly based fasciocutaneous flap. 6. Wound VAC change to bilateral buttocks open wounds. SURGEON: Suni Chavez MD. HIGH SCHOOL LEARNING SUPPORT TEACHER: Khalif Adhikari MD. ANESTHESIA: General endotracheal tube anesthesia. ANESTHESIOLOGIST: Dr. Yañez. INDICATIONS FOR PROCEDURE: This is a 36-year-old female who was operated on 3 days prior. In the interim, the patient has been treated with wound VAC therapy as well as IV antibiotics. The patient has remained stable. The patient did require some blood for anemia secondary to blood loss from the surgery. The patient has reported significant resolution of local and systemic symptoms including her shortness of breath has resolved, the fatigue has resolved, buttock and back pain has mostly resolved, and the paresthesia in her leg has resolved as well as the burning and itching of her buttocks. The plan today was to take the patient back for a second-stage debridement, re-elevation of the inferiorly based gluteal fasciocutaneous flaps, and further debridement of necrotic soft tissue from bilateral buttocks, especially the anterolateral hips as well as wound VAC change. We told the patient this would be a multiple operation technique as the skin and soft tissue were rock hard with significant bleeding, so we are going to have to give her more blood during the operation and our time in the operating room based on blood loss because of the radical debridement. We explained to the patient that over the next couple of days, she is probably going to lose more blood and she will get more blood even in the operating room or on the floor. Risks and benefits of the operation were fully discussed with the patient in the previous operation and reiterated in the holding area today. The patient agreed to proceed. An informed consent was signed and all questions were answered. DESCRIPTION OF PROCEDURE: The patient was taken to the operating room in the supine position and placed under general endotracheal tube anesthesia. Perioperative antibiotics were confirmed. SCDs were placed on bilateral lower extremities. She was flipped in a prone position. After appropriate position and padding of the arms and the rest of the body, we removed the wound VAC that was placed prior. The area was prepped and draped in usual clean and sterile manner. Ioban and a blue towel were used to block any bowel flow. We started the operation by exploring for any bleeding, there was nothing significant. We used Joao clamps and measured proposed skin excision from bilateral buttock flaps and marked out the proposed line of incision. Using a #10 scalpel and electrocautery, we cut out more skin and subcutaneous tissue from the superior portion of bilateral buttocks. With the aid of a lighted retractor, we further elevated our bilateral inferior based gluteal fasciocutaneous flap. We went down another 10 cm or so and then we incised the deep muscle fascia. We then elevated the plane of dissection just above the gluteus kobe muscles and the anterolateral hip muscles, and debrided more soft tissue necrosis from bilateral buttocks and hips. We then focused on the anterolateral hips. There was 168 sq cm of left hip necrotic soft tissue mass and 255 sq cm of right hip necrotic soft tissue mass that we removed with a combination of sharp dissection with scissors and scalpel as well as with electrocautery. There was still a significant amount of gluteus kobe muscles that were necrotic and these were debrided with scissor technique as well as electrocautery. About 10% of bilateral gluteus kobe muscles was completely necrotic and rock hard, and this was debrided. Hemostasis was achieved with electrocautery and 3-0 Vicryl sutures. At this point, we had about 400 mL of blood loss and the patient received 1 unit of blood. At this time, we decided to stop the operation after pulse lavage irrigating with 2 liters of antibiotics irrigation and obtaining hemostasis. After further debulking and re-elevating the flaps, we decided to stop the operation in an expected manner. Wound VACs were placed underneath the skin flaps, set to a 125 mmHg. The patient was flipped over, extubated, and transferred to the recovery room in stable condition. FINDINGS: As above. SPECIMENS: 1. Skin from the buttocks. 2. Right hip necrotic soft tissue mass. 3. Left hip necrotic soft tissue mass. ESTIMATED BLOOD LOSS: 400 mL. The patient received 1 unit of packed red blood cells. DRAINS: Wound VAC to bilateral buttocks. CONDITION: Stable. COMPLICATIONS: None. Suni Chavez MD
--- NOTE | 2016-11-21 05:53 | OP ---
PROCEDURE DATE: 11/03/2016 SURGEON: Suni Chavez MD. MANAGER CONTRACTING SURGEON: Khalif Adhikari MD. ANESTHESIA ADMINISTERED BY: Bakari Xiong MD. TYPE OF ANESTHESIA: General endotracheal tube anesthesia. PREOPERATIVE DIAGNOSES: 1. Bilateral buttocks, hips, and back soft tissue necrosis secondary to foreign body reaction. 2. Chronic cellulitis of bilateral buttocks. POSTOPERATIVE DIAGNOSES: 1. Bilateral buttocks, hips, and back soft tissue necrosis secondary to foreign body reaction. 2. Chronic cellulitis of bilateral buttocks. PROCEDURES: 1. Elevation and delay of right inferiorly based gluteal fasciocutaneous flap. 2. Elevation and delay of left inferiorly based gluteal fasciocutaneous flap. 3. Elevation and delay of lumbar spine fasciocutaneous flap. 4. Radical resection of 75 sq cm of left back necrotic soft tissue mass. 5. Radical resection of 330 sq cm of left buttock necrotic soft tissue mass. 6. Radical resection of 90 sq cm of right back necrotic soft tissue mass. 7. Radical resection of 325 sq cm of right buttock necrotic soft tissue mass. 8. Debridement of bilateral gluteus kobe necrotic muscles. 9. Pulsatile lavage irrigation, bilateral buttocks and back. 10. Wound VAC placement, bilateral buttocks. INDICATION FOR THE PROCEDURE: This is a 36-year-old female who is admitted to the hospital on 10/29/2016, through the emergency room for incapacitating buttock and back pain as well as cellulitis. The patient has been on the hospitalist service for the past 5 days, receiving IV antibiotics as well as pain control. The patient has been worked up with MRIs, which showed significant soft tissue necrosis of bilateral buttocks, subcutaneous tissue as well as the gluteus kobe muscles extending to the anterolateral hips as well as migrating cranially up to L2 of the lumbar spine. The patient's presenting symptoms were local as well as systemic including incapacitating back and buttock pain, burning and itching of bilateral buttocks, bilateral lower extremity paresthesias, some shortness of breath, anxiety, and fatigue. 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 The MRI showed likely mass effect causing the buttock and back pain as well as the paresthesias from pressure on the paraspinal nerves as well as the sciatic nerves. I was consulted 2 days prior, at which time, I recommended continuing antibiotics and pain control to see if the cellulitis would improve, but it has not. The patient also has had unwavering buttock and back pain. Preoperatively, the patient was seen and cleared by the medical team. Blood work to rule out NITZA syndrome was taken and it is pending. The benefits of the purposed operation were discussed with the patient and it would be to debulk and remove as much of the soft tissue necrosis as possible. This will take the pressure off of the nerves of the legs, spine, buttocks, and back as well as relieve her pain and allow her immune system to reset, so she is not as prone to recurrent infections and opportunistic infections and to prevent further migration of the materials to other parts of the body. The patient has low-grade chronic cellulitis as well as significant hardening and soft tissue necrosis and hyperpigmentation of bilateral buttocks and anterolateral hips as well as bilateral inguinal lymphadenopathy as well as a tender, fluctuant mass over the lumbar spine. I told the patient postoperatively, intraoperatively, she will be on antibiotics. MRIs were reviewed with the patient and the team. I told the patient the goal for the surgical procedure would be in stages. The first one today where I would raise and delay fasciocutaneous flaps of the back and bilateral buttocks, so I could see the viability of the skin flaps, since there was going to be an incredible amount of debulking. Sometimes, these flaps become necrotic at the distal edges, that is my reasoning in elevating and delaying these flaps. I told her I would treat her with a wound VAC in the interim, so we could reevaluate the flaps and debride them as necessary. The wound VAC would also suck up bacteria and some of the foreign material. It was explained to the patient that it is unknown how much of the necrotic tissues I would take out, but I would take out whatever is visible and palpable in a safe manner. I reiterated that this could be cosmetically disfiguring, she may have poor scarring, her wound may breakdown, she may need multiple reconstructive surgeries over the next many years and her buttocks may come out significantly deformed. I told her conversely if she did nothing she is at high risk of having her skin and eventually her whole buttocks necrosed, which would require much more radical surgery. The risks and benefits of the purposed operation including, but not limited to hematoma, seroma, infection, DVT, PE, DC, , necrosis of the skin flaps, open wounds, delayed healing, hypertrophic scarring, keloid scarring, skin necrosis, damage to sensory and motor nerves, difficulty ambulating, chronic pain, and embolization of the silicone to other parts of the body were discussed with the patient and all questions were answered. I reviewed the patient's MRIs of her lumbar spine and pelvis and correlated to physical exam in the preop holding area where I marked appropriate landmarks in the areas of resection including up to L2 of the lumbar spine. DESCRIPTION OF PROCEDURE: The patient was taken to the operating room prior to induction of general anesthesia in the supine position. Perioperative antibiotics were given and SCDs were placed on bilateral lower extremities. After being intubated, she was flipped into prone position. After appropriate positioning and padding of her arms and her body, the buttocks and back were then prepped and draped in the usual clean and sterile manner. The anus was protected with a blue towel and Ioban dressing. Prior to starting, we re-measured and re-marked the surgical markings to make them symmetric with a #10 scalpel. We dissected down through the skin. We used electrocautery to dissect all the way down to the deep muscle fascia of the gluteus kobe muscles and the paraspinal muscles. We then elevated 3 fasciocutaneous flaps. We elevated a superiorly based lumbar fasciocutaneous flap about 10 cm superiorly correlating to the MRI exam and the tender, fluctuant mass that was on her back exam. We then elevated the left and right inferiorly based gluteal fasciocutaneous flaps as far down as we could with the instruments that we had and we were able to dissect it about 20 cm down. We also cut out a significant amount of skin with a #10 scalpel. Then, in a plane just deep to Narendra fascia, we dissected the skin flaps off the necrotic soft tissue mass and with a combination of sharp dissection and electrocautery, we debulked a large amount of fat necrosis, silicone scar tissue, and then silicone granulomas from bilateral buttocks and hips. In the back, there was 75 sq cm of left back necrotic soft tissue mass, 330 sq cm of left buttock necrotic soft tissue mass, 90 sq cm of right back necrotic soft tissue mass and 325 sq cm of right buttock necrotic soft tissue mass that was debrided and sent to the lab with a combination of sharp dissection as well as electrocautery. After doing this, there was some necrosis, significant amount of bilateral gluteus kobe muscles and these were sharply debrided with scalpel, scissors and electrocautery. We then lam picked through the muscle and any granulomas that we could see were popped as well as the ones below the dermis. We then pulsatile lavaged and irrigated with 3 L of antibiotic irrigation and then achieved hemostasis with electrocautery. At this point, we were quite pleased with initial debulking. We could not go down any further inferiorly. After elevating the flaps and delaying them and ensuring hemostasis, we placed wound VACs underneath the skin flaps and set it to 125 mmHg. There were no leaks. We flipped the patient over, extubated her and transferred to recovery room in stable condition. FINDINGS: As above. SPECIMENS: 1. Skin from buttock and back. 2. Left back necrotic soft tissue mass. 3. Left buttock necrotic soft tissue mass. 4. Right back necrotic soft tissue mass. 5. Right buttock necrotic soft tissue mass. ESTIMATED BLOOD LOSS: 500 mL, the patient had 2 units of packed red blood cells. DRAINS: Wound VACs to bilateral buttocks. COMPLICATIONS: None. CONDITION: Stable. Suni Chavez MD
== END 2016-11-10 20:16 | disposition home or self-care (01) | DRG 574 ==
LOC: H.ER 22:30 → H.ERHOLD 22:59 → H.MEDSURG1 10-30 00:40
PROVIDERS: ADMIT Internal Medicine; ATTEND Internal Medicine
PROC: 0KBP0ZZ Excision of Left Hip Muscle, Open Approach (ICD-10-PCS; 2016-11-03)
PROC: 0KBN0ZZ Excision of Right Hip Muscle, Open Approach (ICD-10-PCS; 2016-11-03)
PROC: 0H88XZZ Division of Buttock Skin, External Approach (ICD-10-PCS; 2016-11-03)
PROC: 0H86XZZ Division of Back Skin, External Approach (ICD-10-PCS; 2016-11-03)
PROC: 30233N1 Transfusion of Nonautologous Red Blood Cells into Peripheral Vein, Percutaneous Approach (ICD-10-PCS; 2016-11-03)
PROC: 0H88XZZ Division of Buttock Skin, External Approach (ICD-10-PCS; 2016-11-06)
PROC: 0KBP0ZZ Excision of Left Hip Muscle, Open Approach (ICD-10-PCS; 2016-11-06)
PROC: 0KBN0ZZ Excision of Right Hip Muscle, Open Approach (ICD-10-PCS; 2016-11-06)
PROC: 30233N1 Transfusion of Nonautologous Red Blood Cells into Peripheral Vein, Percutaneous Approach (ICD-10-PCS; 2016-11-06)
PROC: 0JB90ZZ Excision of Buttock Subcutaneous Tissue and Fascia, Open Approach (ICD-10-PCS; 2016-11-08)
PROC: 0JX70ZC Transfer Back Subcutaneous Tissue and Fascia with Skin, Subcutaneous Tissue and Fascia, Open Approach (ICD-10-PCS; 2016-11-08)
PROC: 0JX90ZC Transfer Buttock Subcutaneous Tissue and Fascia with Skin, Subcutaneous Tissue and Fascia, Open Approach (ICD-10-PCS; principal; 2016-11-08 12:00)
DX: L03.317 Cellulitis of buttock (principal); I96 Gangrene, not elsewhere classified; D68.9 Coagulation defect, unspecified; D62 Acute posthemorrhagic anemia; L02.31 Cutaneous abscess of buttock; L92.3 Foreign body granuloma of the skin and subcutaneous tissue; L90.5 Scar conditions and fibrosis of skin; E87.6 Hypokalemia; D72.829 Elevated white blood cell count, unspecified; Z98.82 Breast implant status; Z87.891 Personal history of nicotine dependence